=== PATIENT | female | born 1940 | race Caucasian/White ===

== ENCOUNTER 2016-05-10 07:55 | Inpatient (IN) | payer MEDICARE ==
--- NOTE | ~2016-05-10 | HP ---
Unit #: [id number] #: [id number] Patient: CLAUDETTE SILVESTRE [id number] [address] [place], [place] [address] [id number] I MR#: [id number] NAME: CLAUDETTE SILVESTRE. ROOM: 469 Age: 75 Sex: F Admission Date: 05/10/2016 : 1940 Attending Physician: Asia Segundo M.D. Primary Care Physician: Melody Ham M.D. HISTORY AND PHYSICAL CHIEF COMPLAINT Shortness of breath. HISTORY OF PRESENT ILLNESS The patient is a 75-year-old female who recently was admitted and discharged from [facility] for a similar presentation of shortness of breath. She has had about two to three recent admissions on account of the same symptoms. She currently follows up with Dr. Villa Pulmonary. She presented with shortness of breath, having some difficulty breathing, and unable to catch her breath. She was seen and evaluated in the emergency room, and workup so far did not really reveal a pneumonia. Chest x-ray, however, showed some pulmonary pleural effusions, and she was admitted for COPD exacerbation. At this time, she states she is comfortable. She is still short of breath but is on oxygen, and she feels a little bit better. PAST MEDICAL HISTORY 1. Atrial fibrillation. 2. Hypertension. 3. Chronic obstructive pulmonary disease. 4. Hyperlipidemia. 5. Chronic respiratory failure with oxygen at night. HOME MEDICATIONS 1. Cartia XT 180 mg p.o. twice daily. 2. Xarelto 20 mg p.o. every evening for atrial fibrillation. 3. Lipitor 20 mg p.o. daily. 4. Advair 250/50 at 2 puffs inhalation twice daily. 5. Tudorza Pressair 400 mcg inhalation twice daily. 6. Calcium with vitamin D 2 tablets p.o. daily. 7. DuoNebs. 8. Lasix 40 mg p.o. every evening. 9. Potassium 10 mEq p.o. daily. 10. Tramadol 50 mg every 12 hours. 11. Flonase nasal 1 squirt intranasal twice daily. ALLERGIES LATEX. FAMILY HISTORY Noncontributory to the presenting complaint. SOCIAL HISTORY From documentation in the chart, patient smokes about a half a pack of Unit #: [id number] #: [id number] Patient: CLAUDETTE SILVESTRE cigarettes a day. Denies any alcohol use or illicit drug use. REVIEW OF SYSTEMS She feels a little better. She does have a cough. Denies any chest pain. No melena, hematochezia, hemoptysis, or hematemesis. A complete 10-point review of systems has been done and pertinent positives are noted above. PHYSICAL EXAMINATION GENERAL: She was acute on chronically ill looking. VITAL SIGNS: Blood pressure was 160/83, pulse 117, respiratory rate 22, and temperature 98.3. HEENT: Pupils were equal and reactive to light and accommodation. NECK: Supple without thyromegaly. CHEST: Reduced breath sounds and some wheezing. CARDIOVASCULAR: First and second heart sounds. ABDOMEN: Full. Moved with respiration. Soft. No palpable organomegaly. SKIN: Warm and dry with no rashes with bruising noted. CENTRAL NERVOUS SYSTEM: Alert and oriented x3. Moves all limbs spontaneously. Cranial nerves II-XII grossly intact at this time. EXTREMITIES: Mild bilateral lower extremity edema. DIAGNOSTIC STUDIES LABORATORY: Chemistries with glucose of 128, BUN and creatinine 13 and 0.8, sodium and potassium 136 and 4, and chloride and bicarbonate 95 and 30, respectively. CBC with WBC of 4.8, hemoglobin and hematocrit 8.9 and 25.6, and platelet count of 274,000. IMAGING: Chest x-ray showed cardiomegaly with possible mild vascular congestion and small bilateral pleural effusions. Findings were said to be stable or recurrent since March 16, 2016. COPD. ASSESSMENT AND PLAN 1. Acute respiratory failure probably multifactorial at this time. I believe chronic obstructive pulmonary disease exacerbation is probably in play here. However, there might be some (1) congestive heart failure. BNP was 206 which is up from March 13, 2016, when it was 135. She also has some anemia which may also be somewhat of a factor in this. I will go ahead and consult Pulmonary at this time, and she may need to see Cardiology as well. In light of patient's stability, I would place patient on telemetry monitoring and get cardiac markers. 2. Deep venous thrombosis prophylaxis. She is currently on Xarelto for atrial fibrillation. 3. Gastroesophageal reflux disease/gastrointestinal prophylaxis. Will put her on Protonix. 1. Dictated by Bryce Whitaker TD: 05/10/2016 21:06 JOB #: [id number] Unit #: [id number] #: [id number] Patient: CLAUDETTE SILVESTRE HISTORY AND PHYSICAL X Asia Segundo MD X HISTORY AND PHYSICAL
--- NOTE | ~2016-05-10 | DS ---
Unit #: [id number] #: [id number] Patient: CLAUDETTE SILVESTRE [id number] [address] [address] [id number] I MR#: [id number] NAME: CLAUDETTE SILVESTRE. ROOM: 469 Age: 75 Sex: F Admission Date: 05/10/2016 : 1940 Discharge Date: 05/15/2016 Attending Physician: Laurent Perez M.D. Primary Care Physician: Melody Ham M.D. DISCHARGE SUMMARY REASON FOR HOSPITAL ADMISSION Acute respiratory failure. HISTORY OF PRESENT ILLNESS/HOSPITAL COURSE The patient is a very pleasant 75-year-old female who was originally admitted secondary to chronic obstructive pulmonary disease exacerbation as well as acute respiratory failure and likely acute diastolic dysfunction. In regard to her respiratory failure, Dr. Villa of pulmonary services was subsequently consulted. He continued to follow the patient throughout hospital course. Initially she was placed on IV Solu-Medrol as well as IV antibiotics an aerosol treatments. She has been since gradually transitioned to p.o. doxycycline as well as p.o. prednisone. In regard to her prior history of diastolic heart failure, the patient did undergo two-dimensional echocardiogram on 03/17/2016 and was actually followed by [facility] and, therefore, we consulted their services for the same. She does have a prior history of diastolic heart rate failure with a ISABEL score of approximately 4. While she was here she was maintained on appropriate IV diuresis and over the past 24-48 hours she has diuresed appropriately. Today she is feeling much better. Physical therapy and occupational therapy services have both evaluated the patient and recommended that she be transitioned to a rehab facility for ongoing care. In regard to her underlying history of atrial fibrillation, she was maintained on chronic anticoagulation including Xarelto while she was here. It should be noted that she does have severe pulmonary hypertension noted on two-dimensional echocardiogram. She also has a baseline history of chronic anemia with a hemoglobin of approximately 8.5. Unit #: [id number] #: [id number] Patient: CLAUDETTE SILVESTRE DIAGNOSTIC DATA LABORATORY: On discharge baseline creatinine level close to 1.0, hemoglobin 9.2. FINAL DISCHARGE DIAGNOSES 1. Dyspnea, multifactorial in origin. Likely secondary to acute on chronic respiratory failure, chronic obstructive pulmonary disease exacerbation, acute on chronic diastolic heart failure, anemia compounding. 2. History of endstage chronic obstructive pulmonary disease on nocturnal O2, likely requiring 24-hour oxygen moving forward. 3. Acute on chronic diastolic heart failure. 4. Volume overload. 5. Likely obstructive sleep apnea. 6. Sever pulmonary hypertension. 7. Anemia, baseline approximately 8.5 to 9.0. 8. Severe deconditioning. 9. Immobility syndrome. 10. Chronic atrial fibrillation with ISABEL score 4. 11. Chronic anticoagulation. DISCHARGE MEDICATIONS 1. Combivent aerosol solution q.2 h. p.r.n., q.6 h. scheduled. 2. Pulmicort nebulized b.i.d. 3. Prednisone 40 mg p.o. daily times 5 days. 4. Perforomist nebulized solution b.i.d. 5. Prednisone 40 mg p.o. daily. 6. Flonase 1-2 squirts each nostril daily. 7. Xarelto 20 mg p.o. daily. 8. Xanax 0.5 mg p.o. q.6 h. p.r.n. 9. Cardizem CD 180 mg p.o. b.i.d. 10. Lipitor 20 mg p.o. at nighttime. 11. Ultram 50 mg p.o. b.i.d. p.r.n. 12. Aldactone 12.5 mg p.o. daily. 13. Protonix 40 mg p.o. b.i.d. 14. Os-Fernie 1000 mg p.o. daily. 15. Doxycycline 100 mg p.o. b.i.d. times 5 days. DISCHARGE CONDITION Stable. DISPOSITION Rehab for ongoing care. Dictated by... Bryce Hill/david TD: 05/15/2016 12:10 JOB #: [id number] Unit #: [id number] #: [id number] Patient: CLAUDETTE SILVESTRE DISCHARGE SUMMARY X Laurent Perez MD DISCHARGE SUMMARY
--- NOTE | ~2016-05-10 | CO ---
Unit #: [id number] #: [id number] Patient: CLAUDETTE SILVESTRE [id number] [facility]. [place], [place] [address] [id number] I MR#: [id number] NAME: CLAUDETTE SILVESTRE. ROOM: 469 Age: 75 Sex: F Admission Date: 05/10/2016 : 1940 Attending Physician: Tennille Kendrick M.D. Primary Care Physician: Melody Ham M.D. CONSULTATION REPORT REFERRING PHYSICIAN Dr. Segundo. REASON FOR CONSULTATION AFib management and shortness of breath. HISTORY OF PRESENT ILLNESS This is a 75-year-old female, who follows chronically with Dr. Cruz for her AFib. She has had 2 to 3 recent admissions for shortness of breath and follows with Dr. Villa as an outpatient. On 05/09/2016, she became more short of breath and her symptoms are not relieved with breathing treatment. She denied cough and wheezing, but just felt like she could not breathe. By Wednesday on 05/10/2016, her symptoms were worse. She has dyspnea especially with exertion and she cannot tolerate very little activity, which is a change from just in the last month to month and a half. Apparently, she was walking upstairs without a problem at [place] time and now can barely walk about 5 to 10 feet. She does report PND, but states as long as she has 2 pillows, she lays flat at night. She appears to be conversationally dyspneic. She also complains of swelling to her feet, legs, and ankles, which has gotten better, but had gotten worse about a week ago. She has chronic palpitations, however, she reports in the last week, she has not felt any palpitations. She denies any dizziness. She denies any syncope. She denies any weight loss. She is very compliant with her medications. She informs me and her daily weight. This is for her CHF management. She has had a 3 pound weight gain since 04/29/2016 and has all her daily weights written in a notebook. Her swelling to her bilateral lower extremities also is accompanied with increased pain, which is a new symptom for her. Apparently, she has an appointment this with Dr. Cruz and was supposed to have an appointment today with heart failure clinic. Previous cardiac testing includes an EP study with atrial flutter ablation on 10/03/2012. A left heart cath in 07/2012 showed nonobstructive coronary artery disease. She had a 20% LAD stenosis, 20% left circumflex stenosis, 20% mid RCA stenosis. She had a AVTAR also in 07/2012, which was unremarkable for any clots. 2D echo done on 03/17/2016 showed normal LV function with mild MR, [id number] TR, and moderate pulmonary hypertension with an RVSP of 50 with mild LVH. Lexiscan Cardiolite was done on 07/04/2012, which was positive for ischemia of the septal apical and inferolateral arnold. Her EF at that time was 50%. She was subsequently heart catheterized as noted above. PAST MEDICAL HISTORY Include cardiac ablation; chronic AFib, on Xarelto with intermittent Unit #: [id number] #: [id number] Patient: CLAUDETTE SILVESTRE atrial flutter; hypertension; hyperlipidemia; COPD requiring supplemental oxygen at home; previous tobacco abuse; pulmonary hypertension; squamous cell carcinoma; essential tremor; cataract surgery; and nonobstructive coronary artery disease. HOME MEDICATIONS Include diltiazem 180 b.i.d., Xarelto 20 mg daily, Lipitor 20 mg daily, Advair inhaler, Tudorza Pressair, calcium and vitamin D tablets, DuoNeb, Lasix 40 mg daily, potassium 20 mEq daily, tramadol 50 mg b.i.d. as needed for pain, Flonase, Augmentin 875 mg b.i.d. ALLERGIES To latex. SOCIAL HISTORY Apparently, she told me she quit smoking on 03/13/2016 and she has been using a patch. Prior to quitting, she smoked about a pack a day for 50 years. She lives with her daughter. She denies any alcohol or illicit drugs. FAMILY HISTORY Positive for cancer. Apparently, her father had hypertension, but unremarkable for any further heart disease that she is aware of. REVIEW OF SYSTEMS As noted above in the HPI. PHYSICAL EXAMINATION VITAL SIGNS: Blood pressure 139/57, heart rate of 104, respirations 18, temperature 97.2, weight 69.6 kg. GENERAL: She appears well developed, well nourished, and is seen in room 469, and appears in mild respiratory distress with O2 via nasal cannula. SKIN: Very dry with scaly patches and no rashes, ulcers, wounds noted. HEENT: Head is normocephalic, atraumatic. Pupils are equal, round, and reactive to light and accommodation with extraocular movements are intact. Oral mucosal membranes are dry. NECK: Supple with no bruit or JVD noted. However, she is mildly obese. SPINE: Shows no tenderness and no scoliosis. CHEST: She has reduced breath sounds mostly in the bases and increased respiratory effort. CARDIOVASCULAR: She is in an irregularly irregular rhythm with an S1 and S2 noted and a soft 1/6 systolic ejection murmur heard at the apex. ABDOMEN: Soft, round, nontender with positive bowel sounds. EXTREMITIES: Show 1+ edema, very mild at best with positive pulses. NEUROLOGIC: She is alert and oriented x3 and pleasant. She is a pretty good historian as well. DIAGNOSTIC STUDIES LABORATORY RESULTS: Troponin level, which has been less than 0.03 x3. Sodium 136, potassium 4.0, chloride 96, BUN is 15, creatinine 0.6, glucose 203. BNP 206. Blood cultures are pending. WBC 4.8, hemoglobin 8.7, hematocrit 26.1, and platelet count 303. CARDIOVASCULAR STUDIES: EKG, AFib with rate in the 90s. IMAGING STUDIES: Chest x-ray on 05/10/2016 show cardiomegaly with mild vascular congestion with small bilateral pleural effusion stable since 03/16/2016 and positive for COPD. Unit #: [id number] #: [id number] Patient: CLAUDETTE SILVESTRE ASSESSMENT AND PLAN 1. She has permanent atrial fibrillation, rate controlled, managed on Xarelto. CHADS-VASc score was found to be 4. 2. Acute exacerbation of chronic obstructive pulmonary disease. 3. Elevated glucose secondary to administration of steroids. 4. Acute respiratory failure. 5. Chronic anticoagulation with Xarelto. Cardiology has been asked to see her for shortness of breath and chronic atrial fibrillation. She is managed on Cardizem and Xarelto, which will be continued. She is also on 40 of p.o. Lasix daily. I will give her 40 mg IV x1 dose and resumed her p.o. Lasix in the morning. Diltiazem and Xarelto to continue. We will check an EKG in the a.m. She is stable from a cardiac standpoint. Thank you for this consult. We will continue to follow her through hospitalization. Dictated by... Ying Rendon APRN for Bryce Miller TD: 05/11/2016 22:29 JOB #: [id number] CONSULTATION REPORT X X CONSULTATION REPORT
--- NOTE | ~2016-05-10 | CO ---
Unit #: [id number] #: [id number] Patient: CLAUDETTE MEYER [id number] [facility]. [place], [place] [address] [id number] I MR#: [id number] NAME: CLAUDETTE MEYER ROOM: 469 Age: 75 Sex: F Admission Date: 05/10/2016 : 1940 Attending Physician: Tennille Kendrick M.D. Primary Care Physician: Melody Ham M.D. CONSULTATION REPORT HISTORY OF PRESENT ILLNESS The patient is a 75-year-old female, who has a history of COPD and chronic atrial fibrillation and some degree of heart failure, who is the grandmother of a respiratory therapist here at [facility]. She was at this institution early 03/2016, where she had streptococcal pneumonia and COPD exacerbation. She had very dense consolidation of her left lower lobe and another nodular consolidation in the right lower lobe. She apparently then was home approximately a week or two and went to [place] for "congestive heart failure." Those records are unavailable. She then had a 1- to -2 day history of increased cough, mucopurulent sputum, wheezing. She presented to the emergency room, where she was admitted. She denies hemoptysis, chest pain, pleurisy. She has had generalized leg pain, but that is relatively chronic. PAST MEDICAL HISTORY Remarkable for COPD; chronic respiratory failure, now requiring oxygen 24 hours a day; recent pneumococcal pneumonia; atrial fibrillation; hypertension; hyperlipidemia; congestive heart failure, details unclear; pulmonary hypertension with an estimated RVSP of 50, I do not see a formal echo report recently. MEDICATIONS At home, according to her med rec sheet, she is on Advair b.i.d., Tudorza b.i.d. She has a nebulizer. She wears her oxygen 24 hours a day. She is also on Cartia, Xarelto, Lipitor, calcium, nebulized bronchodilators, Lasix, potassium, tramadol, Flonase, and was on Augmentin; although, I am not sure if she was still taking that or not. ALLERGIES Lasix. SOCIAL HISTORY According to the ER face sheet, she still smokes. FAMILY HISTORY No familial lung disease. REVIEW OF SYSTEMS No definite fever or weight loss. She does snore and most of these hospitalizations occur in the mobile home set up person hours. No definite chest pain, palpitations, abdominal pain, melena, hematochezia, hematuria, dysuria, diffuse leg pain, and occasionally some leg swelling. She has this rash for lack of a better term all over her legs, it has been there for what her granddaughter says is years. Further review of systems Unit #: [id number] #: [id number] Patient: CLAUDETTE MEYER negative. PHYSICAL EXAMINATION VITAL SIGNS: Reveals a patient, who is afebrile. Pulse is 100, respiratory rate is 22, blood pressure is 147/80. 5 feet 6 inches, 153 pounds. HEENT: Pupils are equal, round, and reactive to light. Sclerae anicteric. Head atraumatic. NECK: Supple. No supraclavicular or cervical adenopathy appreciated. She has dentures on the tops. She has a few natural teeth on bottom. Mucous membranes are moist. CHEST: Expiratory wheeze. No consolidation. No stridor. CARDIAC: Reveals a mild tachycardia, mildly irregular. Possible soft murmur. ABDOMEN: Soft and nontender. No hepatomegaly or rebound. EXTREMITIES: Reveal no clubbing, cyanosis. No definite edema now. SKIN: Reveals the small little punctate areas that are scaly all over her legs bilaterally. NEUROLOGICAL: Grossly intact. No focal motor or sensory deficits. DIAGNOSTIC STUDIES IMAGING STUDIES: Chest x-ray shows an improvement to my review, her left lower lobe, she has bilateral small pleural effusions. LABORATORY RESULTS: BUN is 13, creatinine 0.8. BNP is 206. Cardiac enzymes negative. White blood cell count 4.8, hemoglobin 8.9, platelet count 274. Blood cultures performed and are pending. CARDIOVASCULAR STUDIES: EKG; atrial fibrillation. IMPRESSION 1. Shortness of breath. It is likely multifactorial including acute exacerbation of chronic obstructive pulmonary disease. 2. Bilateral small pleural effusions, may have some congestive heart failure, details unclear. 3. Recent admission here at [facility] for streptococcal pneumonia with an abnormal CAT scan. 4. Recent admission to [place] for "congestive heart failure.". 5. Chronic respiratory failure, now requiring oxygen 24 hours a day. 6. Abnormal CAT scan during her pneumonia, needs to be followed to clearance. 7. Suspect obstructive sleep apnea with snoring. 8. Tobacco use. 9. Anemia. 10. Atrial fibrillation, on Xarelto. 11. Pulmonary hypertension. 12. Rash. 13. Medical problems listed above. PLAN Treatment of her chronic obstructive pulmonary disease. Antibiotics for bronchitis. Echocardiogram for LV function and valvular integrity. She has had two hospitalizations and carries this diagnosis of congestive heart failure. I could not find a recent echocardiogram either in [facility] or [facility]. She certainly will need a CT scan of the chest at some point in time, I am not sure that it would alter her current therapy. My suspicion for thromboembolic disease is essentially zero, given her history and the fact that she is on Xarelto. Certainly, no smoking is of Unit #: [id number] #: [id number] Patient: CLAUDETTE MEYER great benefit. Consider Dermatology consultation either inpatient or outpatient followup. Thank you very much for allowing me to participate in the care of Ms. Meyer. Dictated by... Ry Villa M.D. SAURAV/cathleen TD: 05/11/2016 15:28 JOB #: [id number] CONSULTATION REPORT X Ry Villa MD X CONSULTATION REPORT
--- NOTE | ~2016-05-10 | EKG ---
PATIENT: CLAUDETTE SILVESTRE UNIT #: [id number] Ventricular Rate: 85 BPM Atrial Rate: 300 BPM QRS Duration: 76 ms Q-T Interval: 372 ms QTC Calculation(Bezet): 442 ms Calculated R [place]: -38 degrees Calculated T [place]: 39 degrees Diagnosis Line: Atrial fibrillation Diagnosis Line: Left axis deviation Diagnosis Line: Low voltage QRS Diagnosis Line: Cannot rule out Anteroseptal infarct (cited on or Diagnosis Line: before 09-MAR-2013) Diagnosis Line: Abnormal ECG Diagnosis Line: When compared with ECG of 10-MAY-2016 07:01, Diagnosis Line: No significant change was found Diagnosis Line: Confirmed by SANDY ROE MD ([id number]) on Diagnosis Line: 05/12/2016 12:08:02 PM INTERPRETING MD: CECILIA
--- NOTE | ~2016-05-10 | CR72 ---
[facility] A Service of [facility] RADIOLOGY TEXT RESULTS PATIENT: CLAUDETTE SILVESTRE LOCATION: [place] [address] : [birth year] UNIT #: [id number] AGE: [address]: Asia Segundo MD SEX: F ORDER DR: [id number] [facility] [address] [facility]. [place], [place] [address] [id number] I MR#: [id number] Acc #: [id number] NAME: CLAUDETTE SILVESTRE. : 1940 SEX: F STUDY DATE/TIME: 05/10/2016 7:13 UNIT: [facility] ROOM: [facility] STUDY DESCRIPTION: CR Chest Single View Portable Attending Physician: Asia Segundo M.D. Ordering Physician: Igor Gipson M.D. Primary Care Physician: Melody Ham M.D. MEDICAL IMAGING REPORT This report is preliminary unless electronic signature is present EXAM AP portable chest 05/10/2016. HISTORY 75-year-old female in the ED complaining of 1-day history of shortness of air and cough. TECHNIQUE AP portable chest x-ray. FINDINGS Small bilateral pleural effusions with bibasilar infiltrate or atelectasis, persistent or recurrent since 03/16/2016. Mild cardiomegaly with radiographic findings suggesting potential mild vascular congestion, also unchanged. Pulmonary emphysema with pulmonary hyperinflation, best demonstrated on previous chest CT 03/13/2016. IMPRESSION 1. Cardiomegaly with possible mild vascular congestion. Small bilateral pleural effusions. These findings are stable or recurrent since 03/16/2016. 2. COPD. Dictated by... David Sanchez M.D. THIS IS AN ELECTRONICALLY VERIFIED REPORT David Sanchez M.D. at 05/10/2016 3:06 PM RGW/jackeline [facility] A Service of [facility] RADIOLOGY TEXT RESULTS PATIENT: CLAUDETTE SILVESTRE LOCATION: [facility] [id number] : [birth year] UNIT #: [id number] AGE: [address]: Asia Segundo MD SEX: F ORDER DR: TD: 05/10/2016 13:20 JOB #: [id number] MEDICAL IMAGING REPORT COPY
--- NOTE | ~2016-05-10 | EKG ---
PATIENT: CLAUDETTE SILVESTRE UNIT #: [id number] Ventricular Rate: 96 BPM Atrial Rate: 101 BPM QRS Duration: 70 ms Q-T Interval: 350 ms QTC Calculation(Bezet): 442 ms Calculated R [place]: -51 degrees Calculated T [place]: 64 degrees Diagnosis Line: Atrial fibrillation Diagnosis Line: Left axis deviation Diagnosis Line: Low voltage QRS Diagnosis Line: Cannot rule out Anteroseptal infarct (cited on or Diagnosis Line: before 09-MAR-2013) Diagnosis Line: Abnormal ECG Diagnosis Line: When compared with ECG of 13-MAR-2016 12:09, Diagnosis Line: Questionable change in initial forces of Septal Diagnosis Line: leads Diagnosis Line: Confirmed by OLINDA CORTEZ MD ([id number]) on 05/11/2016 Diagnosis Line: 6:01:09 PM INTERPRETING MD: DIEGO HANDLEY
--- NOTE | ~2016-05-10 | CR63 ---
[facility] A Service of [facility] RADIOLOGY TEXT RESULTS PATIENT: CLAUDETTE SILVESTRE LOCATION: [place] [address] : 38 UNIT #: [id number] AGE: [address]: Laurent Perez MD SEX: F ORDER DR: [id number] [facility] [address] [place], [place] [address] [id number] I MR#: [id number] Acc #: [id number] NAME: CLAUDETTE SILVESTRE. : 1940 SEX: F STUDY DATE/TIME: 05/12/2016 10:45 UNIT: [facility] ROOM: [facility] STUDY DESCRIPTION: CR Chest 2 View Attending Physician: Laurent Perez M.D. Ordering Physician: Laurent Perez M.D. Primary Care Physician: Melody Ham M.D. MEDICAL IMAGING REPORT This report is preliminary unless electronic signature is present EXAM Chest, PA and lateral, 05/12/2016 COMPARISON EXAMINATION 05/10 HISTORY Shortness of breath, weakness, COPD, atrial fibrillation beginning 05/10/2016. FINDINGS PA and lateral views are obtained and compared to the study of 05/10. Heart size is stable. Lung continue to show evidence of pulmonary edema with bilateral pleural effusions. There is underlying chronic emphysematous lung disease. CONCLUSION COPD. Findings consistent with congestive heart failure, pulmonary edema, and bilateral effusions. Dictated by... Boone Garza M.D. THIS IS AN ELECTRONICALLY VERIFIED REPORT Boone Garza M.D. at 05/13/2016 5:03 PM ROBIN/kristie TD: 05/12/2016 16:02 JOB #: [id number] [facility] A Service [facility] RADIOLOGY TEXT RESULTS PATIENT: CLAUDETTE SILVESTRE LOCATION: [place] [address] : 38 UNIT #: [id number] AGE: [address]: Laurent Perez MD SEX: F ORDER DR: MEDICAL IMAGING REPORT COPY
[2016-05-10 07:41] LABS: BASOPHIL% 0.9 % (0-2.5); EOSINOPHIL# 0.1 X10e3 (0-0.7); EOSINOPHIL% 1.6 % (0.0-7.0); HEMATOCRIT 25.6 % (35.0-45.0); HEMOGLOBIN 8.9 gm/dL (12.0-16.0); LYMPHOCYTE# 0.7 X10e3 (1.0-3.5); LYMPHOCYTE% 15.1 % (17.0-45.0); MEAN CELL VOLUME 84.2 FL (83-96); MEAN CORPUSCULAR HEMOGLOBIN 29.2 PG (28-34); MEAN CORPUSCULAR HGB CONC 34.7 g/dL (30-36); MEAN PLATELET VOLUME 6.6 FL (6.5-11.5); MONOCYTE# 0.6 X10e3 (0-1.0); MONOCYTE% 11.9 % (3.0-12.0); NEUTROPHIL# 3.4 X10e3 (1.5-7.1); NEUTROPHIL% 70.5 % (40-75); PLATELET COUNT 274 X10e3 (140-420); RED BLOOD COUNT 3.04 X10e (3.90-5.30); RED CELL DISTRIBUTION WIDTH 17.3 % (11.0-15.5); WHITE BLOOD COUNT 4.8 X10e3 (4.0-10.5)
[2016-05-10 07:46] LABS: DIFF IND NO
[2016-05-10 07:54] LABS: POC - CKMB 1.9 ng/mL (0.0-7.9); POC - TROPONIN <0.05 ng/mL (<=0.05)
[~2016-05-10 07:55] MED LIST: ADVAIR 250-501 EAC1; ADVAIR 500-501 EACH PO; ALBUTEROL MININEB NEB; ALBUTEROL17 GM; CALCIUM1 TAB.CHEW; CARTIA XT180 M1; CARTIA XT180 MG PO; IPRAT-ALBUT 0.5-3 ML INH; LIPITOR20 MG; LIPITOR20 MG PO; NICOTINE TRANSD14 MG EXT; NICOTINE TRANSDE7 MG EXT; OXYGEN; PREDNISONE PO; TUDORZA PRESS400 MCG PO; VITAMIN D1000 UNIT PO; XARELTO10 MG; XARELTO20 MG PO; [UNRECOGNIZED DRUG - OTHER]
[2016-05-10 08:04] LABS: ALBUMIN SERUM 3.6 g/dL (3.5-5.0); ALKALINE PHOSPHATASE 68 U/L (32-92); ALT (SGPT) 16 U/L (10-40); AST (SGOT) 18 U/L (10-42); BILIRUBIN, DIRECT 0.2 mg/dL (0.0-0.2); BILIRUBIN,TOTAL 1.2 mg/dL (0.2-2.0); BLOOD UREA NITROGEN 13 mg/dL (9-23); BUN/CREATININE RATIO 16.25; CALCIUM SERUM 9.3 mg/dL (8.4-10.2); CARBON DIOXIDE 30 mmol/L (22-31); CHLORIDE 95 mmol/L (100-111); CREATININE SERUM 0.8 mg/dL (0.6-1.4); GLOM FILT RATE Estimated ABOVE60 mL/min (>60); GLUCOSE FASTING 128 mg/dL (70-110); PROTEIN TOTAL SERUM 6.3 g/dL (6.0-8.3); SODIUM 136 mmol/L (135-145)
[2016-05-10] MEDS ORDERED: LASIX PO (09:48)
[2016-05-10] MEDS ORDERED: TRAMADOL HCL50 M2 PO (09:50)
[2016-05-10] MEDS ORDERED: K-LOR HOSPITAL20 ME1 PO (09:50)
[2016-05-10] MEDS ORDERED: FLONASE 0.05% N16 G1 (15:05)
[2016-05-10] MEDS ORDERED: AMOX TR-K CLV 81 TA1 PO (15:06)
[2016-05-11 03:11] LABS: BASOPHIL% 0.2 % (0-2.5); HEMATOCRIT 26.1 % (35.0-45.0); HEMOGLOBIN 8.7 gm/dL (12.0-16.0); LYMPHOCYTE# 0.4 X10e3 (1.0-3.5); LYMPHOCYTE% 8.1 % (17.0-45.0); MEAN CELL VOLUME 84.7 FL (83-96); MEAN CORPUSCULAR HEMOGLOBIN 28.1 PG (28-34); MEAN CORPUSCULAR HGB CONC 33.2 g/dL (30-36); MEAN PLATELET VOLUME 6.9 FL (6.5-11.5); MONOCYTE# 0.1 X10e3 (0-1.0); MONOCYTE% 2.5 % (3.0-12.0); NEUTROPHIL# 4.3 X10e3 (1.5-7.1); NEUTROPHIL% 89.2 % (40-75); PLATELET COUNT 303 X10e3 (140-420); RED BLOOD COUNT 3.08 X10e (3.90-5.30); RED CELL DISTRIBUTION WIDTH 17.3 % (11.0-15.5); WHITE BLOOD COUNT 4.8 X10e3 (4.0-10.5)
[2016-05-11 03:15] LABS: DIFF IND NO
[2016-05-11 03:38] LABS: BLOOD UREA NITROGEN 15 mg/dL (9-23); CALCIUM SERUM 9.3 mg/dL (8.4-10.2); CARBON DIOXIDE 31 mmol/L (22-31); CHLORIDE 96 mmol/L (100-111); CREATININE SERUM 0.6 mg/dL (0.6-1.4); GLOM FILT RATE Estimated ABOVE60 mL/min (>60); GLUCOSE FASTING 203 mg/dL (70-110); MAGNESIUM 1.8 mg/dL (1.6-3.0); PHOSPHOROUS 3.8 mg/dL (2.5-4.6); SODIUM 136 mmol/L (135-145)
[2016-05-11 03:54] LABS: CK TOTAL 30 IU/L (26-140)
[2016-05-11 11:17] LABS: CK TOTAL 19 IU/L (26-140)
[2016-05-11 17:59] LABS: CK TOTAL 24 IU/L (26-140)
[2016-05-12 02:31] LABS: HEMATOCRIT 25.9 % (35.0-45.0); HEMOGLOBIN 8.5 gm/dL (12.0-16.0); MEAN CELL VOLUME 85.2 FL (83-96); MEAN CORPUSCULAR HEMOGLOBIN 27.8 PG (28-34); MEAN CORPUSCULAR HGB CONC 32.6 g/dL (30-36); MEAN PLATELET VOLUME 6.7 FL (6.5-11.5); RED BLOOD COUNT 3.04 X10e (3.90-5.30)
[2016-05-12 02:38] LABS: WHITE BLOOD COUNT 11.4 X10e3 (4.0-10.5)
[2016-05-12 05:11] LABS: BLOOD UREA NITROGEN 26 mg/dL (9-23); BUN/CREATININE RATIO 28.88; CALCIUM SERUM 9.6 mg/dL (8.4-10.2); CARBON DIOXIDE 33 mmol/L (22-31); CHLORIDE 92 mmol/L (100-111); CREATININE SERUM 0.9 mg/dL (0.6-1.4); GLOM FILT RATE Estimated ABOVE60 mL/min (>60); GLUCOSE FASTING 176 mg/dL (70-110); MAGNESIUM 1.9 mg/dL (1.6-3.0); SODIUM 136 mmol/L (135-145)
[2016-05-13 03:55] LABS: HEMATOCRIT 25.2 % (35.0-45.0); HEMOGLOBIN 8.2 gm/dL (12.0-16.0); LYMPHOCYTE# 0.6 X10e3 (1.0-3.5); LYMPHOCYTE% 5.1 % (17.0-45.0); MEAN CELL VOLUME 84.9 FL (83-96); MEAN CORPUSCULAR HEMOGLOBIN 27.7 PG (28-34); MEAN CORPUSCULAR HGB CONC 32.6 g/dL (30-36); MEAN PLATELET VOLUME 6.6 FL (6.5-11.5); MONOCYTE# 0.6 X10e3 (0-1.0); MONOCYTE% 5.9 % (3.0-12.0); NEUTROPHIL# 9.5 X10e3 (1.5-7.1); PLATELET COUNT 357 X10e3 (140-420); RED BLOOD COUNT 2.97 X10e (3.90-5.30); RED CELL DISTRIBUTION WIDTH 16.8 % (11.0-15.5); WHITE BLOOD COUNT 10.7 X10e3 (4.0-10.5)
[2016-05-13 04:00] LABS: DIFF IND NO
[2016-05-13 04:23] LABS: CALCIUM SERUM 9.6 mg/dL (8.4-10.2); GLOM FILT RATE Estimated 57.1 mL/min (>60); MAGNESIUM 2.2 mg/dL (1.6-3.0); POTASSIUM 4.8 mmol/L (3.5-5.1)
[2016-05-14 04:34] LABS: BASOPHIL% 0.1 % (0-2.5); DIFF IND NO; EOSINOPHIL% 0.1 % (0.0-7.0); HEMATOCRIT 26.6 % (35.0-45.0); HEMOGLOBIN 8.8 gm/dL (12.0-16.0); LYMPHOCYTE# 0.6 X10e3 (1.0-3.5); MEAN CELL VOLUME 83.9 FL (83-96); MEAN CORPUSCULAR HEMOGLOBIN 27.6 PG (28-34); MEAN CORPUSCULAR HGB CONC 32.9 g/dL (30-36); MEAN PLATELET VOLUME 6.5 FL (6.5-11.5); MONOCYTE# 0.6 X10e3 (0-1.0); MONOCYTE% 5.2 % (3.0-12.0); NEUTROPHIL# 10.4 X10e3 (1.5-7.1); NEUTROPHIL% 89.6 % (40-75); PLATELET COUNT 362 X10e3 (140-420); RED BLOOD COUNT 3.17 X10e (3.90-5.30); RED CELL DISTRIBUTION WIDTH 16.6 % (11.0-15.5); WHITE BLOOD COUNT 11.6 X10e3 (4.0-10.5)
[2016-05-14 04:56] LABS: BLOOD UREA NITROGEN 30 mg/dL (9-23); CALCIUM SERUM 9.2 mg/dL (8.4-10.2); CARBON DIOXIDE 35 mmol/L (22-31); CHLORIDE 91 mmol/L (100-111); CREATININE SERUM 0.8 mg/dL (0.6-1.4); GLOM FILT RATE Estimated ABOVE60 mL/min (>60); GLUCOSE FASTING 175 mg/dL (70-110); POTASSIUM 4.2 mmol/L (3.5-5.1); SODIUM 135 mmol/L (135-145)
[2016-05-14 18:09] LABS: CALCIUM SERUM 8.6 mg/dL (8.4-10.2); GLOM FILT RATE Estimated 57.1 mL/min (>60); POTASSIUM 4.2 mmol/L (3.5-5.1)
[2016-05-15 03:23] LABS: HEMATOCRIT 27.4 % (35.0-45.0); HEMOGLOBIN 9.2 gm/dL (12.0-16.0); MEAN CELL VOLUME 83.6 FL (83-96); MEAN CORPUSCULAR HEMOGLOBIN 28.1 PG (28-34); MEAN CORPUSCULAR HGB CONC 33.6 g/dL (30-36); MEAN PLATELET VOLUME 6.6 FL (6.5-11.5); RED BLOOD COUNT 3.28 X10e (3.90-5.30); WHITE BLOOD COUNT 14.1 X10e3 (4.0-10.5)
[2016-05-15 03:48] LABS: BLOOD UREA NITROGEN 31 mg/dL (9-23); BUN/CREATININE RATIO 34.44; CALCIUM SERUM 8.6 mg/dL (8.4-10.2); CARBON DIOXIDE 37 mmol/L (22-31); CHLORIDE 90 mmol/L (100-111); CREATININE SERUM 0.9 mg/dL (0.6-1.4); GLOM FILT RATE Estimated ABOVE60 mL/min (>60); GLUCOSE FASTING 166 mg/dL (70-110); MAGNESIUM 1.9 mg/dL (1.6-3.0); POTASSIUM 3.6 mmol/L (3.5-5.1); SODIUM 135 mmol/L (135-145)
== END 2016-05-17 16:33 | DRG 291 ==
LOC: CED 07:55 → CEDOF 08:40 → C4C 12:53 → C4B 05-16 06:01
PROVIDERS: Emergency Medicine; Family Medicine; Internal Medicine; Nurse Practitioner
DX: I11.0 Hypertensive heart disease with heart failure (principal); J96.21 Acute and chronic respiratory failure with hypoxia; I27.2 Other secondary pulmonary hypertension; I48.92 Unspecified atrial flutter; J44.1 Chronic obstructive pulmonary disease with (acute) exacerbation; I50.33 Acute on chronic diastolic (congestive) heart failure; E78.5 Hyperlipidemia, unspecified; Z99.81 Dependence on supplemental oxygen; Z91.040 Latex allergy status; Z79.01 Long term (current) use of anticoagulants; K21.9 Gastro-esophageal reflux disease without esophagitis; Z98.49 Cataract extraction status, unspecified eye; Z87.891 Personal history of nicotine dependence; I48.2 Chronic atrial fibrillation; D64.9 Anemia, unspecified; R21 Rash and other nonspecific skin eruption; M62.3 Immobility syndrome (paraplegic); L57.0 Actinic keratosis
CPT/HCPCS: 36415; 71010; 71020; 80048; 80076; 82308; 82550; 82553; 82607; 82947; 83036; 83735; 83880; 84100; 84484; 85025; 85027; 87040; 93005; 94640; 94760; 94761; 96374; 97110; 97116; 97163; 97166; 97530; 97535; 99285; C9113; G8978-GP; G8979-GP; G8987-GO; G8988-GO; J1650; J1940; J1956; J2920; J2930

== ENCOUNTER 2016-07-23 15:49 | Inpatient (IN) | payer MEDICARE ==
--- NOTE | ~2016-07-23 | DS ---
Unit #: [id number] #: [id number] Patient: CLAUDETTE SILVESTRE [id number] [address] [place], [place] [address] [id number] I MR#: [id number] NAME: CLAUDETTE SILVESTRE ROOM: 241 Age: 75 Sex: F Admission Date: 07/23/2016 : 1940 Discharge Date: 08/04/2016 Attending Physician: Curly Stafford M.D. Primary Care Physician: Melody Ham M.D. DISCHARGE SUMMARY DISCHARGE DIAGNOSES 1. Acute on chronic respiratory failure, now back to baseline oxygen. 2. Pneumonia, status post antibiotics. 3. End-stage emphysema. 4. Skin tear secondary to steroid therapy at least in part. 5. Diastolic heart failure. 6. Chronic atrial fibrillation. Please note, Xarelto has been held because of Hemoccult-positive stools and severe anemia. 7. Hypertension. 8. Hyperlipidemia. 9. Pulmonary hypertension with an estimated right ventricular systolic pressure of 50. 10. Contraction alkalosis, status post Diamox. 11. Hypokalemia, status post replacement of her potassium. 12. Tobacco abuse. DISCHARGE MEDICATIONS 1. DuoNeb q.i.d. and p.r.n. 2. Prednisone 30 mg daily to be decreased 10 mg daily every 4 days to a baseline of 10 mg daily. 3. Tylenol 650 mg q.i.d. p.r.n. 4. Flonase 2 sniffs each nostril at night. 5. She is on a variety of creams for her skin tears per wound care nurse. 6. Dulera 200 at 2 puffs twice daily. 7. Cardizem 180 mg twice daily. 8. Milk of Magnesia p.r.n. 9. Lasix 40 mg daily orally. 10. Lipitor 20 mg daily. 11. Iron 324 mg daily. Please note, she received IV iron while in the hospital. 12. Multivitamin daily. 13. Ultram 50 mg t.i.d. p.r.n. 14. Protonix 40 mg twice daily. 15. Vitamin D 1000 units daily. 16. Oxygen 2 liters 24 hours daily. 17. Please note, she does not qualify for AVAPS by blood gas criteria. PCO2 was 44. DISPOSITION [facility] ACTIVITY No specific restrictions except oxygen 24 hours a day. Unit #: [id number] #: [id number] Patient: CLAUDETTE SILVESTRE PROCEDURES PERFORMED Please see chart for full details. She had lower extremity venous Dopplers of her right leg and right arm which were negative for blood clots. She has had chest x-rays with improving infiltrates. Last chest x-ray with possible small pleural effusion. She had a CT angiogram with no evidence of PE. Pulmonary infiltrates were identified. DESCRIPTION OF HOSPITALIZATION Patient was admitted by Dr. Stafford through the emergency room with acute on chronic respiratory failure. She had pulmonary infiltrates consistent with pneumonia and was treated. Sputum with gram-positive cocci in pairs on the . It still has not been reported. Of note, she had a pneumococcus in her sputum in the past. She responded well to treatment for pneumonia and has completed her antibiotics. Of note, screen for MRSA was negative. She was very, very weak and will require rehab. Her COPD responded to treatment, and her prednisone is being slowly decreased. Due to the chronicity of her problem and need for steroids often in the past, I would taper her prednisone to 10 mg daily and no further until fully stable. She did have some edema which is multifactorial including low albumin, bedridden state, etc., and I think her edema will mobilize with increased activity. She is on oral Lasix. She may need additional doses of IV diuretics. She developed a mild contraction alkalosis and received oral Diamox. I would occasionally monitor her renal function and electrolytes, as well as her CBC. She had significant anemia. [facility] was consulted. Her hemoglobin was stable, and the lowest was 7 grams. She received IV iron, and at last check, it was 7.7 grams. LSA felt that the scopes were too risky given her debilitated state and will monitor closely and consider outpatient upper and lower scopes if she gets strong enough. Certainly, if she bleeds, EGD can be performed emergently. She has chronic atrial fibrillation, but given her severe anemia, Hemoccult-positive stools, and likely some degree of GI bleeding, her blood thinners have been held. Again, once her hemoglobin has been deemed to be stable, could consider restarting her blood thinners with close monitoring of her hemoglobin and hematocrits. FOLLOWUP At discharge from rehab, I would follow up with [facility], follow up with her product demonstrator, follow up in our office on [facility], and follow up with Dr. Ham, her family physician. LONG-TERM PROGNOSIS Guarded. She is aware of the severity of her lung disease. Dictated by... Bryce Schumacher/ryan Unit #: [id number] #: [id number] Patient: CLAUDETTE SILVESTRE TD: 08/04/2016 15:57 JOB #: [id number] CC: [facility] DISCHARGE SUMMARY Page 1 of 1 X Ry Villa MD X DISCHARGE SUMMARY
--- NOTE | ~2016-07-23 | A ---
[facility] Nutrition Therapy DATE: 08/03/16 Patient: CLAUDETTE SILVESTRE Physician: MOOPET Address: [address] Room/Bed: [address] [place] [address], Zip: [place] [address] Admit Date: 07/23/16 Date of : 38 Height: 5 6 Weight: 153 69.5 NUTRITIONAL ASSESSMENT: REASON: Assessed due to length of stay Admitting Dx: 75 y/o female admitted with PNA, respiratory failure, anemia PMH: COPD on home O2, PNA, HTN, HLD, CHF, A-fib, long hx of smoking Anthropometrics: Ht: 66", Wt: 144-153 lbs, BMI: 24.7 (normal), UBW per patient: 143-145 lbs Labs: Glucose 114, lytes WNL Meds: Therapeutic formula, Milk of Mg, PPI, Furosemide, Prednisone, Vitamin D, Fe gluconate I/O & Bowel function: Last BM 08/01, WNL Skin Integrity: Discoloration BLE, hematoma LUE Edema: Trace DENISE ankles, weeping RUE, 1+ RLE Assessment: Chart reviewed, events noted. RD assessing due to 10 day length of stay. The patient is on 2.5L nasal cannula, getting breathing treatment at time of RD interview. She is tolerating a regular diet with no chewing/swallowing difficulties, eating most of 3 meals per day. Scored 0 points on the malnutrition risk score, denies any recent significant weight gain or loss. Weight stable per past weights. She does c/o leg swelling, has hx of CHF. RD gave brief verbal low sodium diet education and encouraged her to restrict high salt items, she is already familiar with watching sodium intake, says her and her haven't cooked with it for years. Also discussed avoiding excessive fluid intake to prevent volume overload. She had no other dietary questions or concerns. SNU precert started. See recs below, patient is not at nutritional risk. Dx: No nutrition diagnosis Intervention: None Monitoring, Evaluation and Goals: PO intake > 50% of meals. Recommendations: 1. Continue current diet, monitor sodium/fluid intake to prevent volume overload. High [facility] Nutrition Therapy DATE: 08/03/16 Patient: CLAUDETTE SILVESTRE Physician: SJ Address: [address] Room/Bed: [address] [place] [address], Zip: [place] [address] Admit Date: 07/23/16 Date of : 38 Height: 5 6 Weight: 153 69.5 sodium foods verbally reviewed with the patient. 2. Daily weights given swelling and history of CHF. No nutrition risk Respectfully, Sarah Barrera RD, LD Food and Nutritional Services [facility] cc: client file
--- NOTE | ~2016-07-23 | US140 ---
[facility] A Service of [facility] RADIOLOGY TEXT RESULTS PATIENT: CLAUDETTE SILVESTRE LOCATION: [place] : 38 UNIT #: [id number] AGE: [address]: Curly Stafford MD SEX: F ORDER DR: [id number] [facility] [address] [place], [place] [address] [id number] I MR#: [id number] Acc #: [id number] NAME: CLAUDETTE SILVESTRE. : 1940 SEX: F STUDY DATE/TIME: 08/03/2016 14:26 UNIT: [facility] ROOM: [facility] STUDY DESCRIPTION: US UE Veins Unilat or Ltd Stdy Attending Physician: Curly Stafford M.D. Ordering Physician: Ry Villa M.D. Primary Care Physician: Melody Ham M.D. MEDICAL IMAGING REPORT This report is preliminary unless electronic signature is present EXAM Right upper extremity venous ultrasound INDICATIONS Right arm swelling for three days TECHNIQUE Venous ultrasound examination of the right lower extremity was performed using grayscale, spectral Doppler and color flow Doppler imaging. FINDINGS The examination is negative. There is no evidence of right lower extremity deep venous thrombus from the groin to the lower calf. Visualized greater saphenous vein is also patent. IMPRESSION Negative examination. No evidence of right lower extremity deep venous thrombosis. Dictated by... Keegan Martinez M.D. THIS IS AN ELECTRONICALLY VERIFIED REPORT Keegan Martinez M.D. at 08/03/2016 11:12 PM DFL/to TD: 08/03/2016 17:24 JOB #: [id number] MEDICAL IMAGING REPORT Page 1 of 1 COPY
--- NOTE | ~2016-07-23 | EKG ---
PATIENT: CLAUDETTE SILVESTRE UNIT #: [id number] Ventricular Rate: 88 BPM Atrial Rate: 394 BPM QRS Duration: 72 ms Q-T Interval: 368 ms QTC Calculation(Bezet): 445 ms Calculated R [place]: -50 degrees Calculated T [place]: 44 degrees Diagnosis Line: Atrial fibrillation Diagnosis Line: Left axis deviation Diagnosis Line: Low voltage QRS Diagnosis Line: Abnormal ECG Diagnosis Line: When compared with ECG of 12-MAY-2016 07:24, Diagnosis Line: No significant change was found Diagnosis Line: Confirmed by OLINDA CORTEZ MD ([id number]) on 07/24/2016 Diagnosis Line: 8:03:09 PM INTERPRETING MD: DIEGO HANDLEY
--- NOTE | ~2016-07-23 | CT16 ---
[facility] A Service of [facility] RADIOLOGY TEXT RESULTS PATIENT: CLAUDETTE SILVESTRE LOCATION: [facility] 241-01 : 38 UNIT #: [id number] AGE: [address]: Curly Stafford MD SEX: F ORDER DR: [id number] [facility] [address] [place], [place] [address] [id number] I MR#: [id number] Acc #: [id number] NAME: CLAUDETTE SILVESTRE. : 1940 SEX: F STUDY DATE/TIME: 07/23/2016 17:59 UNIT: [facility] ROOM: [facility] STUDY DESCRIPTION: CT Angio Chest for PE Attending Physician: Gilberto Stafford M.D. Ordering Physician: Suzan Crawley M.D. Primary Care Physician: Melody Ham M.D. MEDICAL IMAGING REPORT This report is preliminary unless electronic signature is present EXAM CT angiogram chest with IV contrast HISTORY Shortness of air for [address] exam was performed with one or more of the following radiation dose reduction techniques: automatic exposure control, adjustment of mA and/or kV according to patient size, and iterative reconstruction. IV contrast CT angiogram chest was performed with 3-D reconstructions. Exam is compared to CT 03/13/2016. FINDINGS No pulmonary embolus. Normal caliber thoracic aorta. Small bilateral pleural effusions. Moderate atelectasis in the bilateral lower lobes. Moderate patchy subsegmental infiltrate in the lateral left upper lobe and mild patchy subsegmental infiltrates in the anterior upper lobes bilaterally and in the posteroinferior right upper lobe, could be infectious or inflammatory. Moderate bilateral emphysema, greater in the upper lobes. No adenopathy. Stable borderline enlarged right paratracheal lymph node compared to 03/13/2016 CT. IMPRESSION 1. No pulmonary embolus. 2. Bilateral pleural effusions. 3. Mild atelectasis in the posterior lower lobes. 4. Moderate subsegmental infiltrate in the lateral left upper lobe and minimal subsegmental infiltrates in the anterior upper lobes bilaterally and in the posteroinferior right upper lobe. This could all be infectious or inflammatory. STS. [facility] A Service of [facility] & [facility] RADIOLOGY TEXT RESULTS PATIENT: CLAUDETTE SILVESTRE LOCATION: [facility] 241-01 : 38 UNIT #: [id number] AGE: [address]: Curly Stafford MD SEX: F ORDER DR: 5. Moderate to moderately advanced bilateral emphysema, greater in the upper lobes. Dictated by... Keegan Martinez M.D. THIS IS AN ELECTRONICALLY VERIFIED REPORT Keegan Martinez M.D. at 07/24/2016 11:29 PM JUAN/chasity TD: 07/24/2016 01:14 JOB #: [id number] MEDICAL IMAGING REPORT Page 1 of 1 COPY
--- NOTE | ~2016-07-23 | US85 ---
[facility] A Service of [facility] RADIOLOGY TEXT RESULTS PATIENT: CLAUDETTE SILVESTRE LOCATION: A : 38 UNIT #: [id number] AGE: [address]: Curly Stafford MD SEX: F ORDER DR: [id number] [facility] [address] [place], [place] [address] [id number] I MR#: [id number] Acc #: [id number] NAME: CLAUDETTE SILVESTRE. : 1940 SEX: F STUDY DATE/TIME: 08/02/2016 17:28 UNIT: [facility] ROOM: [facility] STUDY DESCRIPTION: LE JumpCam Unilat or Ltd Stdy Attending Physician: Curly Stafford M.D. Ordering Physician: Ry Villa M.D. Primary Care Physician: Melody Ham M.D. MEDICAL IMAGING REPORT This report is preliminary unless electronic signature is present EXAM Right lower extremity venous ultrasound HISTORY Leg pain and swelling for 3 days. TECHNIQUE Venous ultrasound examination of the right lower extremity was performed using grayscale, spectral Doppler and color flow Doppler imaging. FINDINGS The examination is negative. There is no evidence of right lower extremity deep venous thrombus from the groin to the lower calf. Visualized greater saphenous vein is also patent. IMPRESSION Negative examination. No evidence of right lower extremity deep venous thrombosis. Dictated by... Keegan Martinez M.D. THIS IS AN ELECTRONICALLY VERIFIED REPORT Keegan Martinez M.D. at 08/03/2016 11:10 PM DFL/kris TD: 08/02/2016 19:51 JOB #: [id number] MEDICAL IMAGING REPORT Page 1 of 1 COPY
--- NOTE | ~2016-07-23 | CR63 ---
[facility] A Service of [facility] RADIOLOGY TEXT RESULTS PATIENT: CLAUDETTE SILVESTRE LOCATION: [facility] 241-01 : 38 UNIT #: [id number] AGE: [address]: Curly Stafford MD SEX: F ORDER DR: [id number] [facility] [address] [place], [place] [address] [id number] I MR#: [id number] Acc #: [id number] NAME: CLAUDETTE SILVESTRE : 1940 SEX: F STUDY DATE/TIME: 07/29/2016 13:05 UNIT: C2A ROOM: 241 STUDY DESCRIPTION: CR Chest 2 View Attending Physician: Curly Stafford M.D. Ordering Physician: Ry Villa M.D. Primary Care Physician: Melody Ham M.D. MEDICAL IMAGING REPORT This report is preliminary unless electronic signature is present EXAM Chest 04/16 views 07/29/2016 1305 hours HISTORY 75-year-old woman with shortness of air, wheezing and nonproductive cough for a couple of weeks. History of COPD, hypertension and CHF. COMPARISON 07/27/2016 FINDINGS Upright PA and lateral views of the chest demonstrate stable cardiomegaly. Mediastinal and hilar contours are normal. There is stable benign calcified nodes. The lungs demonstrate improving bilateral interstitial change and clearing of right upper lobe density. There is some residual density in the left upper lobe. There is blunting of both costophrenic sulci likely stable bilateral effusions. IMPRESSION There is improving interstitial change in patchy airspace changes in the upper lobes as compared to 07/27/2016 with resolution on the right and minimal residual density in the left upper lung. There are persistent bilateral pleural effusions unchanged from 07/27/2016. Dictated by... Carmencita Garcia M.D. THIS IS AN ELECTRONICALLY VERIFIED REPORT Carmencita Garcia M.D. at 07/29/2016 2:29 PM CAMILA/mandy TD: 07/29/2016 13:51 JOB #: [id number] [facility] A Service of [facility] & [facility] RADIOLOGY TEXT RESULTS PATIENT: CLAUDETTE SILVESTRE LOCATION: [facility] 241-01 : 38 UNIT #: [id number] AGE: [address]: Curly Stafford MD SEX: F ORDER DR: MEDICAL IMAGING REPORT Page 1 of 1 COPY
--- NOTE | ~2016-07-23 | CO ---
Unit #: [id number] #: [id number] Patient: CLAUDETTE MEYER [id number] [address] [place], [place] [address] [id number] I MR#: [id number] NAME: CLAUDETTE MEYER. ROOM: 241 Age: 75 Sex: F Admission Date: 07/23/2016 : 1940 Attending Physician: Curly Stafford M.D. Primary Care Physician: Melody Ham M.D. Consultation Date: 07/27/2016 CONSULTATION REPORT REASON FOR CONSULTATION 1. Left arm hematoma versus abscess. 2. Microcytic hypochromic anemia. Thank you very much for asking us to see Ms. Meyer. HISTORY OF PRESENT ILLNESS She is a 75-year-old white female, who was admitted with pulmonary problems. She subsequently developed a left arm hematoma after IV access was changed. She was also found to have microcytic hypochromic anemia. She denies any GI bleeding. She denies any abdominal pain. She has regular bowel movements. Her weight has been stable and her appetite overall has been good. She presents at this time for further evaluation. PAST MEDICAL HISTORY COPD with home oxygen, history of recent pneumococcal pneumonia, atrial fibrillation, hypertension, hyperlipidemia, congestive heart failure, pulmonary hypertension. ALLERGIES Latex. SOCIAL HISTORY Long history of smoking in the past. No alcohol use. FAMILY HISTORY Noncontributory. MEDICATIONS Please see med rec sheet. REVIEW OF SYSTEMS Negative except for above. IMMUNIZATION STATUS Unknown. PHYSICAL EXAMINATION GENERAL: Well-developed, well-nourished white female, in no apparent distress. VITAL SIGNS: Afebrile. Vital signs stable. HEENT: Sclerae not icteric. Extraocular movements are intact. NECK: Supple. No thyromegaly or adenopathy. ABDOMEN: Soft, nontender. Examination of her left forearm reveals extensive bruising and a 3 x 4 cm Unit #: [id number] #: [id number] Patient: CLAUDETTE MEYER hematoma that has no evidence currently of abscess or infection. There was no evidence of overlying skin necrosis, and there was no extravasation of hematoma. DIAGNOSTIC STUDIES LABORATORY RESULTS: Reveal the patient to have a CMP that shows glucose of 150, BUN 30, creatinine 0.8. Liver function tests on 07/23/2016 were normal. White count is 15.1 with hemoglobin of 7.1, hematocrit 22.9, MCV of 79.6. Admission hemoglobin was 8.7. IMPRESSION A 75-year-old white female with a pulmonary issues and microcytic hypochromic anemia and a left forearm hematoma. In terms of the free forearm, we feel this should be followed expectantly, and if the patient develops extravasation, evidence of infection, or overlying skin necrosis, then she would need incision and drainage and debridement with either leaving the wound open or loosely closing it. In terms of microcytic hypochromic anemia, it would be best to perform upper and lower endoscopy when the patient is able to tolerate the prep and the procedure. At this point, we would continue Protonix b.i.d. empirically to treat a possible upper GI source. She has not had a colonoscopy for over 5 years. Her stool is Hemoccult negative and she may need evaluation by Hematology as well. Thank you very much for this consultation. We appreciate it. Dictated by... Rito Groves M.D. MONET/cathleen TD: 07/28/2016 04:51 JOB #: [id number] CC: Ry Villa M.D. [facility] CONSULTATION REPORT Page 1 of 1 X Rito Groves MD X CONSULTATION REPORT
--- NOTE | ~2016-07-23 | CR72 ---
[facility] A Service of [facility] & [facility] RADIOLOGY TEXT RESULTS PATIENT: CLAUDETTE SILVESTRE LOCATION: C2[place] 241- : 38 UNIT #: [id number] AGE: [address]: Curly Stafford MD SEX: F ORDER DR: [id number] [facility] [address] [place], [place] [address] [id number] I MR#: [id number] Acc #: [id number] NAME: CLAUDETTE SILVESTRE. : 1940 SEX: F STUDY DATE/TIME: 07/23/2016 16:24 UNIT: [facility] ROOM: [facility] STUDY DESCRIPTION: CR Chest Single View Portable Attending Physician: Gilberto Stafford M.D. Ordering Physician: uSzan Crawley M.D. Primary Care Physician: Melody Ham M.D. MEDICAL IMAGING REPORT This report is preliminary unless electronic signature is present EXAM AP radiograph of the chest 07/23/2016 HISTORY Short of air. Began 2 weeks ago. Worse today. FINDINGS AP radiograph of the chest is presented. Comparison 05/25/2016. No acute-appearing bony abnormality. Stable cardiac enlargement. The lungs are hyperinflated suggesting underlying emphysema. Increased vascular prominence compared to prior study consistent with underlying vascular congestion. Generalized increase in fine linear interstitial markings in the lungs more pronounced toward the periphery and at the lower lung zones. Small bilateral pleural effusions. Not significantly changed on right. Slightly increased on left. Basilar patchy and linear densities likely atelectatic in nature. Focal area of airspace disease in the left upper lung zone is entirely new. This might represent an area of airspace edema though this is an atypical distribution for airspace edema given the lack of significant 17:17 given the lack of extensive airspace involvement elsewhere. Concomitant left upper lobe pneumonia is a consideration. Short-interval followup to confirm resolution of findings is recommended. There is no suspicious nodule. Calcified azygos node unchanged. Records in DR PACS System indicate patient scheduled for CT chest. Please see that study for further evaluation. Dictated by... Boone Nevarez M.D. THIS IS AN ELECTRONICALLY VERIFIED REPORT Boone Nevarez M.D. at 07/24/2016 11:32 PM REGULO/donte [facility] A Service of [facility] & [facility] RADIOLOGY TEXT RESULTS PATIENT: CLAUDETTE SILVESTRE LOCATION: [place] [address] : 38 UNIT #: [id number] AGE: [address]: Curly Stafford MD SEX: F ORDER DR: TD: 07/23/2016 23:33 JOB #: [id number] MEDICAL IMAGING REPORT Page 1 of 1 COPY
--- NOTE | ~2016-07-23 | CO ---
Unit #: [id number] #: [id number] Patient: CLAUDETTE SILVESTRE [id number] [address] [address] [id number] I MR#: [id number] NAME: CLAUDETTE SILVESTRE. ROOM: 241 Age: 75 Sex: F Admission Date: 07/23/2016 : 1940 Attending Physician: Curly Stafford M.D. Primary Care Physician: Melody Ham M.D. CONSULTATION REPORT ADDENDUM We will also check arterial blood gases. We will see if she is hypercarbic. She may be a candidate for noninvasive ventilation if pCO2 is greater than 50. Dictated by... Bryce Cruz/cathleen TD: 07/24/2016 23:43 JOB #: [id number] CONSULTATION REPORT Page 1 of 1 X Curly Stafford MD X CONSULTATION REPORT
--- NOTE | ~2016-07-23 | CO ---
Unit #: [id number] #: [id number] Patient: CLAUDETTE MEYER [id number] [address] [place], [place] [address] [id number] I MR#: [id number] NAME: CLAUDETTE MEYER. ROOM: 241 Age: 75 Sex: F Admission Date: 07/23/2016 : 1940 Attending Physician: Curly Stafford M.D. Primary Care Physician: Melody Ham M.D. CONSULTATION REPORT HISTORY OF PRESENT ILLNESS Ms. Meyer is a 75-year-old white female, followed by Dr. Villa and Dr. Alvares. She was last admitted to the hospital in late 04/2016 to the hospital inpatient Physician Services, Dr. Villa had been consulted. We were called to admit the patient by the emergency room physicians and my partner admitted Ms. Meyer. She has been followed in our office for COPD and chronic respiratory failure. She also has a history of diastolic congestive heart failure. She was seen in our office on 06/24/2016 for exacerbation of COPD. She was treated with steroids. She was not provided antibiotics. A notation was made that she may be a candidate for noninvasive nocturnal ventilation, but that had not been setup. She presents now with a 2-week history of increasing shortness of breath, increased lower extremity edema. She has had no fever or chills. She has had some cough. She could hardly walk across the room. She continues to wear home oxygen. HOME MEDICATIONS Listed include Cartia, Xarelto, Lipitor, Advair, Tudorza, vitamin D, DuoNeb nebulizer treatments. Lasix which is generally 40 mg in the morning but 20 mg in the afternoon if she has edema. She had been taking the 20 mg in the afternoon. She is also on tramadol, Flonase, Lasix, Protonix, Ferotam, prednisone 10 mg daily, Centrum Silver arthritis pain relief. PAST MEDICAL HISTORY Include severe COPD with chronic respiratory failure, maintained on home oxygen 05/10. Has a history of recent pneumococcal pneumonia, history of atrial fibrillation, hypertension, hyperlipidemia, diastolic congestive heart failure, pulmonary hypertension with right ventricular systolic pressure estimated at 50. ALLERGIES Listed are latex. SOCIAL HISTORY She has a long history of smoking, denies smoking now. Denies alcohol or illicit drugs. FAMILY HISTORY No familial lung disease. REVIEW OF SYSTEMS CONSTITUTIONAL: No fever or chills. HEENT: Some rhinorrhea and nasal congestion. Unit #: [id number] #: [id number] Patient: CLAUDETTE MEYER PULMONARY: As noted. CARDIAC: No chest pain or palpitations. Does have a history of atrial fibrillation. GI: No nausea or vomiting. : No hematuria or dysuria. ENDOCRINE: No polyuria or polydipsia. HEMATOLOGIC: Does have easy bruising and bleeding. SKIN: No rash. NEURO: No unilateral weakness or numbness. No swollen joints. No history of seizures or strokes. She does snore. PHYSICAL EXAMINATION VITAL SIGNS: Blood pressure is 128/60, pulse is 100, respiratory rate 17, afebrile, O2 saturation 97% on 2 L. HEENT: Normocephalic and atraumatic. Pupils are equal, round, and reactive. Sclerae nonicteric. Nasal passages patent. Posterior pharynx crowded, Mallampati IV. Dentures in place. NECK: Supple. Trachea midline. Does have some swelling in the supraclavicular area, but no significant lymphadenopathy. She does have cushingoid facies. Does have somewhat diffuse bruising on the legs and hands. LUNGS: Reveal diminished breath sounds. Mild expiratory wheeze. CARDIAC: Irregular rate and rhythm. Could not appreciate murmur, rub, or gallop. ABDOMEN: Nontender. Bowel sounds are present. No hepatosplenomegaly. EXTREMITIES: Without clubbing, cyanosis, or edema. NEUROLOGIC: Awake and oriented x3. Cranial nerves grossly intact. Muscle strength symmetric bilaterally. She does have 2+ ankle and pretibial edema. SKIN: Warm and dry. Multiple bruising. Psychiatric: Affect calm. DIAGNOSTIC STUDIES LABORATORY RESULTS: Personally reviewed. BMP unremarkable. Hematocrit stable at about 27. No arterial blood gases done. CARDIOVASCULAR STUDIES: EKG; AFib, left axis deviation, low voltage, poor R-wave progression anteriorly. IMAGING STUDIES: CT scan of the chest shows patchy subsegmental infiltrates left upper lobe and right upper lobe somewhat multifocal. Bilateral pleural effusions. No evidence of pulmonary embolus. The left lower lobe infiltrate has resolved since previous chest x-ray in 02/2016. IMPRESSION 1. Possible healthcare-acquired pneumonia given recent hospitalization. 2. Some degree of congestive heart failure, chronic diastolic heart failure. 3. Chronic obstructive pulmonary disease exacerbation. 4. Acute on chronic respiratory failure. 5. Anemia, stable. 6. Other problems as mentioned above. PLAN We will treat with inhaled bronchodilators, IV Solu-Medrol for exacerbation of COPD. We will cover with broad-spectrum antibiotics to cover gram-negatives and MRSA given new development of infiltrates and recent hospitalization. We will check sputum culture. We will need Unit #: [id number] #: [id number] Patient: CLAUDETTE MEYER follow up chest x-ray or CT scan to ensure clearing. We will also check Legionella and strep antigens. If infiltrates do not clear, she may have nonbacterial cause of infiltrate i.e. fungus or etc given her immunosuppression from steroids. We will also provide diuresis. We will have consider having Cardiology to see if she does not improve. We will make further recommendations pending this. Thank you very much. Dictated by... Curly Stafford M.D. ANDREA/cathleen TD: 07/25/2016 00:38 JOB #: [id number] CONSULTATION REPORT Page 1 of 1 X Curly Stafford MD X CONSULTATION REPORT
--- NOTE | ~2016-07-23 | CR72 ---
[facility] A Service of [facility] & [facility] RADIOLOGY TEXT RESULTS PATIENT: CLAUDETTE SILVESTRE LOCATION: [facility] 241 : 38 UNIT #: [id number] AGE: [address]: Curly Stafford MD SEX: F ORDER DR: [id number] [facility] [address] [facility]. [place], [place] [address] [id number] I MR#: [id number] Acc #: [id number] NAME: CLAUDETTE SILVESTRE. : 1940 SEX: F STUDY DATE/TIME: 07/27/2016 6:22 UNIT: [facility] ROOM: [facility] [place] STUDY DESCRIPTION: CR Chest Single View Portable Attending Physician: Curly Stafford M.D. Ordering Physician: Navya Howard D.O. Primary Care Physician: Melody Ham M.D. MEDICAL IMAGING REPORT This report is preliminary unless electronic signature is present EXAM Portable chest, 07/27/2016. INDICATION Shortness of air and congestive heart failure for four days. COMPARISON 07/23/2016. FINDINGS This portable view of the chest shows tiny bilateral effusions with small patchy infiltrates in both upper lobes. The left infiltrate is slightly less dense than on the prior study. The right infiltrate I believe is new. Heart size is normal. Dictated by... Sheldon Scott M.D. THIS IS AN ELECTRONICALLY VERIFIED REPORT Sheldon Scott M.D. at 07/27/2016 2:19 PM FEL/gz TD: 07/27/2016 10:32 JOB #: [id number] MEDICAL IMAGING REPORT Page 1 of 1 COPY
--- NOTE | ~2016-07-23 | EKG ---
PATIENT: CLAUDETTE SILVESTRE UNIT #: [id number] Ventricular Rate: 88 BPM Atrial Rate: 94 BPM QRS Duration: 62 ms Q-T Interval: 350 ms QTC Calculation(Bezet): 423 ms Calculated R [place]: -32 degrees Calculated T [place]: 60 degrees Diagnosis Line: Atrial fibrillation Diagnosis Line: Left axis deviation Diagnosis Line: Low voltage QRS Diagnosis Line: Cannot rule out Anteroseptal infarct (cited on or Diagnosis Line: before 25-JUL-2016) Diagnosis Line: Abnormal ECG Diagnosis Line: Diagnosis Line: Confirmed by ANGELIKA SHUKLA MD ([id number]) on Diagnosis Line: 07/27/2016 8:36:07 AM INTERPRETING MD: VAZQUEZ HANDLEY
[~2016-07-23 15:49] MED LIST changes: +AMOX TR-K CLV 81 TA1 PO; +FLONASE 0.05% N16 G1; +K-LOR HOSPITAL20 ME1 PO; +LASIX PO; +TRAMADOL HCL50 M2 PO
[2016-07-23 16:43] LABS: BASOPHIL% 0.1 % (0-2.5); EOSINOPHIL% 0.2 % (0.0-7.0); HEMATOCRIT 27.5 % (35.0-45.0); HEMOGLOBIN 8.7 gm/dL (12.0-16.0); LYMPHOCYTE# 0.5 X10e3 (1.0-3.5); LYMPHOCYTE% 4.9 % (17.0-45.0); MEAN CELL VOLUME 80.7 FL (83-96); MEAN CORPUSCULAR HEMOGLOBIN 25.4 PG (28-34); MEAN CORPUSCULAR HGB CONC 31.5 g/dL (30-36); MEAN PLATELET VOLUME 6.2 FL (6.5-11.5); MONOCYTE# 0.7 X10e3 (0-1.0); MONOCYTE% 7.3 % (3.0-12.0); NEUTROPHIL# 8.9 X10e3 (1.5-7.1); NEUTROPHIL% 87.5 % (40-75); PLATELET COUNT 347 X10e3 (140-420); RED BLOOD COUNT 3.41 X10e (3.90-5.30); RED CELL DISTRIBUTION WIDTH 21.7 % (11.0-15.5); WHITE BLOOD COUNT 10.2 X10e3 (4.0-10.5)
[2016-07-23 16:47] LABS: DIFF IND NO
[2016-07-23 16:53] LABS: POC - CKMB 1.1 ng/mL (0.0-7.9); POC - TROPONIN <0.05 ng/mL (<=0.05)
[2016-07-23 16:58] LABS: INR 1.2; PARTIAL THROMBOPLASTIN TIME 28.9 SECONDS (23.5-31.3); PROTHROMBIN TIME (PATIENT) 12.7 SECONDS (9.6-11.5)
[2016-07-23 17:19] LABS: ALBUMIN SERUM 3.7 g/dL (3.5-5.0); BILIRUBIN, DIRECT 0.2 mg/dL (0.0-0.2); BILIRUBIN,TOTAL 1.2 mg/dL (0.2-2.0); BUN/CREATININE RATIO 25.71; CALCIUM SERUM 8.8 mg/dL (8.4-10.2); CREATININE SERUM 0.7 mg/dL (0.6-1.4); GLOM FILT RATE Estimated 83.6 mL/min (>60); POTASSIUM 3.4 mmol/L (3.5-5.1); PROTEIN TOTAL SERUM 6.3 g/dL (6.0-8.3)
[2016-07-23] MEDS ORDERED: LASIX20 MG PO (17:33)
[2016-07-23] MEDS ORDERED: ALBUTEROL MININEB PO (17:35)
[2016-07-23] MEDS ORDERED: PANTOPRAZOLE SO40 MG PO (17:35)
[2016-07-23] MEDS ORDERED: CENTRUM SILVER PO (17:36)
[2016-07-23] MEDS ORDERED: PREDNISONE10 MG PO (17:36)
[2016-07-23] MEDS ORDERED: FERRO-TIME325 MG PO (17:36)
[2016-07-23] MEDS ORDERED: ARTHRITIS PAIN650 M3 PO (17:37)
[2016-07-23 19:18] LABS: POC - CKMB <1.0 ng/mL (0.0-7.9); POC - TROPONIN <0.05 ng/mL (<=0.05)
[2016-07-24 11:11] LABS: ARTERIAL BLD GAS O2 SATURATION 95.7 % (90.0-100.0); ARTERIAL BLOOD GAS ALLEN TEST NORMAL; ARTERIAL BLOOD GAS ART SITE RIGHT RADIAL; ARTERIAL BLOOD GAS CARBOXY HB 1.6 %sat (0.0-9.0); ARTERIAL BLOOD GAS HCO3 31.1 mmol/L; ARTERIAL BLOOD GAS MET HB 0.7 %sat (0.0-2.0); ARTERIAL BLOOD GAS PCO2 44.6 mmHg (35.0-45.0); ARTERIAL BLOOD GAS PO2 86.4 mmHg (80.0-100); ARTERIAL BLOOD GAS pH 7.452 (7.350-7.450); ARTERIAL DRAW? YES
[2016-07-24 11:12] LABS: ARTERIAL BLOOD GAS DELIVERY NASAL CANNULA; ARTERIAL BLOOD GAS LITER FLOW 2.5
[2016-07-25 06:08] LABS: BUN/CREATININE RATIO 38.33; CALCIUM SERUM 9.1 mg/dL (8.4-10.2); CREATININE SERUM 0.6 mg/dL (0.6-1.4); GLOM FILT RATE Estimated 87.9 mL/min (>60); POTASSIUM 3.4 mmol/L (3.5-5.1)
[2016-07-25 16:03] LABS: HEMATOCRIT 25.1 % (35.0-45.0); HEMOGLOBIN 7.9 gm/dL (12.0-16.0); MEAN CELL VOLUME 79.3 FL (83-96); MEAN CORPUSCULAR HEMOGLOBIN 24.9 PG (28-34); MEAN CORPUSCULAR HGB CONC 31.4 g/dL (30-36); MEAN PLATELET VOLUME 6.3 FL (6.5-11.5); RED BLOOD COUNT 3.16 X10e (3.90-5.30); RED CELL DISTRIBUTION WIDTH 21.2 % (11.0-15.5); WHITE BLOOD COUNT 16.1 X10e3 (4.0-10.5)
[2016-07-26 08:07] LABS: INR 1.2; PROTHROMBIN TIME (PATIENT) 12.7 SECONDS (9.6-11.5)
[2016-07-26 08:30] LABS: BUN/CREATININE RATIO 38.75; CALCIUM SERUM 9.3 mg/dL (8.4-10.2); CREATININE SERUM 0.8 mg/dL (0.6-1.4); GLOM FILT RATE Estimated 71.2 mL/min (>60); POTASSIUM 3.8 mmol/L (3.5-5.1)
[2016-07-26 09:09] LABS: HEMATOCRIT 24.4 % (35.0-45.0); HEMOGLOBIN 7.5 gm/dL (12.0-16.0); MEAN CELL VOLUME 79.5 FL (83-96); MEAN CORPUSCULAR HEMOGLOBIN 24.4 PG (28-34); MEAN CORPUSCULAR HGB CONC 30.7 g/dL (30-36); MEAN PLATELET VOLUME 6.5 FL (6.5-11.5); RED BLOOD COUNT 3.06 X10e (3.90-5.30); RED CELL DISTRIBUTION WIDTH 20.6 % (11.0-15.5); WHITE BLOOD COUNT 16.8 X10e3 (4.0-10.5)
[2016-07-27 05:04] LABS: HEMATOCRIT 22.9 % (35.0-45.0); HEMOGLOBIN 7.1 gm/dL (12.0-16.0); MEAN CELL VOLUME 79.6 FL (83-96); MEAN CORPUSCULAR HEMOGLOBIN 24.7 PG (28-34); MEAN PLATELET VOLUME 6.2 FL (6.5-11.5); RED BLOOD COUNT 2.88 X10e (3.90-5.30); RED CELL DISTRIBUTION WIDTH 20.1 % (11.0-15.5); WHITE BLOOD COUNT 15.1 X10e3 (4.0-10.5)
[2016-07-27 05:23] LABS: INR 1.1; PARTIAL THROMBOPLASTIN TIME 24.9 SECONDS (23.5-31.3); PROTHROMBIN TIME (PATIENT) 11.6 SECONDS (9.6-11.5)
[2016-07-27 05:37] LABS: BUN/CREATININE RATIO 37.5; CALCIUM SERUM 9.4 mg/dL (8.4-10.2); CREATININE SERUM 0.8 mg/dL (0.6-1.4); GLOM FILT RATE Estimated 71.2 mL/min (>60); POTASSIUM 4.7 mmol/L (3.5-5.1)
[2016-07-28 07:11] LABS: HEMOGLOBIN 7.2 gm/dL (12.0-16.0); MEAN CELL VOLUME 79.5 FL (83-96); MEAN CORPUSCULAR HGB CONC 31.5 g/dL (30-36); MEAN PLATELET VOLUME 6.3 FL (6.5-11.5); RED BLOOD COUNT 2.89 X10e (3.90-5.30); RED CELL DISTRIBUTION WIDTH 20.3 % (11.0-15.5)
[2016-07-28 07:43] LABS: BUN/CREATININE RATIO 35.71; CALCIUM SERUM 9.1 mg/dL (8.4-10.2); CREATININE SERUM 0.7 mg/dL (0.6-1.4); GLOM FILT RATE Estimated 83.6 mL/min (>60); PHOSPHOROUS 3.2 mg/dL (2.5-4.6); POTASSIUM 4.6 mmol/L (3.5-5.1)
[2016-07-29 05:58] LABS: HEMATOCRIT 22.5 % (35.0-45.0); MEAN CELL VOLUME 79.3 FL (83-96); MEAN CORPUSCULAR HEMOGLOBIN 24.8 PG (28-34); MEAN CORPUSCULAR HGB CONC 31.2 g/dL (30-36); MEAN PLATELET VOLUME 6.3 FL (6.5-11.5); RED BLOOD COUNT 2.84 X10e (3.90-5.30); RED CELL DISTRIBUTION WIDTH 20.5 % (11.0-15.5); WHITE BLOOD COUNT 15.6 X10e3 (4.0-10.5)
[2016-07-29 13:09] LABS: IRON SERUM 14 ug/dL (28-170); LACTIC ACID DEHYDROGENASE 231 U/L (91-180); TOTAL IRON BINDING CAPACITY 345 ug/dL (269-535); TRANSFERRIN 247 mg/dL (192-382); TRANSFERRIN SATURATION 4 % (20-50)
[2016-07-29 13:22] LABS: FOLATE (FOLIC ACID) 12.6 ng/mL (>5.8)
[2016-07-30 06:25] LABS: HEMATOCRIT 23.9 % (35.0-45.0); HEMOGLOBIN 7.4 gm/dL (12.0-16.0); MEAN CELL VOLUME 79.5 FL (83-96); MEAN CORPUSCULAR HEMOGLOBIN 24.6 PG (28-34); MEAN CORPUSCULAR HGB CONC 30.9 g/dL (30-36); MEAN PLATELET VOLUME 6.3 FL (6.5-11.5); RED BLOOD COUNT 3.01 X10e (3.90-5.30); RED CELL DISTRIBUTION WIDTH 20.3 % (11.0-15.5)
[2016-07-31 06:11] LABS: HEMATOCRIT 22.9 % (35.0-45.0); HEMOGLOBIN 7.2 gm/dL (12.0-16.0); MEAN CELL VOLUME 78.5 FL (83-96); MEAN CORPUSCULAR HEMOGLOBIN 24.6 PG (28-34); MEAN CORPUSCULAR HGB CONC 31.4 g/dL (30-36); MEAN PLATELET VOLUME 6.3 FL (6.5-11.5); RED BLOOD COUNT 2.92 X10e (3.90-5.30); RED CELL DISTRIBUTION WIDTH 20.6 % (11.0-15.5); WHITE BLOOD COUNT 15.6 X10e3 (4.0-10.5)
[2016-07-31 07:16] LABS: CALCIUM SERUM 8.8 mg/dL (8.4-10.2); CREATININE SERUM 0.6 mg/dL (0.6-1.4); GLOM FILT RATE Estimated 87.9 mL/min (>60)
[2016-08-01 11:14] LABS: LEGIONELLA AG URINE NEG (NEG)
[2016-08-02 06:31] LABS: CALCIUM SERUM 9.1 mg/dL (8.4-10.2); CREATININE SERUM 0.6 mg/dL (0.6-1.4); GLOM FILT RATE Estimated 87.9 mL/min (>60); POTASSIUM 4.2 mmol/L (3.5-5.1)
[2016-08-03 06:43] LABS: HEMATOCRIT 24.9 % (35.0-45.0); HEMOGLOBIN 7.7 gm/dL (12.0-16.0); MEAN CORPUSCULAR HEMOGLOBIN 25.2 PG (28-34); MEAN CORPUSCULAR HGB CONC 31.1 g/dL (30-36); MEAN PLATELET VOLUME 6.7 FL (6.5-11.5); RED BLOOD COUNT 3.07 X10e (3.90-5.30); RED CELL DISTRIBUTION WIDTH 21.4 % (11.0-15.5)
[2016-08-03 07:21] LABS: BUN/CREATININE RATIO 28.57; CREATININE SERUM 0.7 mg/dL (0.6-1.4); GLOM FILT RATE Estimated 83.6 mL/min (>60); MAGNESIUM 1.8 mg/dL (1.6-3.0); PHOSPHOROUS 3.2 mg/dL (2.5-4.6); POTASSIUM 3.6 mmol/L (3.5-5.1)
[2016-08-04 10:39] LABS: BUN/CREATININE RATIO 26.25; CALCIUM SERUM 9.2 mg/dL (8.4-10.2); CREATININE SERUM 0.8 mg/dL (0.6-1.4); GLOM FILT RATE Estimated 71.2 mL/min (>60); POTASSIUM 3.4 mmol/L (3.5-5.1)
== END 2016-08-04 17:14 | DRG 189 ==
LOC: CED 15:49 → CEDOF 19:40 → C2A 19:40 → CEDOF 20:10 → CED 20:10 → C2A 20:10 → CEDOF 22:14 → C2A 08-04 17:14
PROVIDERS: Emergency Medicine; Internal Medicine; Internal Medicine Pulmonary Disease
PROC: 05H533Z Insertion of Infusion Device into Right Subclavian Vein, Percutaneous Approach (ICD-10-PCS; principal; 2016-07-25)
PROC: B546ZZA Ultrasonography of Right Subclavian Vein, Guidance (ICD-10-PCS; 2016-07-25)
DX: J96.20 Acute and chronic respiratory failure, unspecified whether with hypoxia or hypercapnia (principal); J18.9 Pneumonia, unspecified organism; E87.3 Alkalosis; I11.0 Hypertensive heart disease with heart failure; I50.32 Chronic diastolic (congestive) heart failure; I27.2 Other secondary pulmonary hypertension; J44.1 Chronic obstructive pulmonary disease with (acute) exacerbation; J44.0 Chronic obstructive pulmonary disease with (acute) lower respiratory infection; I48.2 Chronic atrial fibrillation; S40.022A Contusion of left upper arm, initial encounter; Z91.040 Latex allergy status; D50.0 Iron deficiency anemia secondary to blood loss (chronic); I10 Essential (primary) hypertension; E78.5 Hyperlipidemia, unspecified; E87.6 Hypokalemia
CPT/HCPCS: 36415; 36600; 71010; 71020; 71275; 80048; 80076; 80202; 82274; 82553; 82728; 82746; 82803; 83540; 83550; 83615; 83735; 83880; 84100; 84484; 85025; 85027; 85610; 85730; 87070; 87205; 87449; 87899; 93005; 93971; 94640; 94664; 94760; 96374; 97110; 97116; 97163; 97166; 97530; 97535; 99285; G8978-GP; G8979-GP; G8980-GP; G8987-GO; G8988-GO; J0692; J0696; J1940; J2543; J2916; J2920; J2930; J3260; J3370; Q9967

== ENCOUNTER 2016-11-03 07:51 | Inpatient (IN) | payer MEDICARE ==
[~2016-11-03] VITALS: Ht 162.6 cm; Wt 67.7 kg
--- NOTE | ~2016-11-03 | CR72 ---
[facility] A Service of [facility] & [facility] RADIOLOGY TEXT RESULTS PATIENT: CLAUDETTE SILVESTRE LOCATION: [place] [address] : 38 UNIT #: [id number] AGE: [address]: Ry Villa MD SEX: F ORDER DR: [id number] [facility] [address] [facility]. [place], [place] [address] [id number] I MR#: [id number] Acc #: [id number] NAME: CLAUDETTE SILVESTRE : 1940 SEX: F STUDY DATE/TIME: 11/03/2016 8:47 UNIT: [facility] ROOM: [id number] STUDY DESCRIPTION: CR Chest Single View Portable Attending Physician: Ry Villa M.D. Ordering Physician: Kevyn Cisneros M.D. Primary Care Physician: Melody Ham M.D. MEDICAL IMAGING REPORT This report is preliminary unless electronic signature is present EXAM Portable chest, 1 view, 11/03/2016. COMPARISON 07/29/2016 CLINICAL HISTORY Short of air today. FINDINGS Small left and moderate right pleural effusion, new since the prior study or clearly at least increased. New vascular congestion. Redemonstrated cardiomegaly. No consolidation or pneumothorax. IMPRESSION Findings suggest hypervolemia and/or congestive failure with vascular congestion, cardiomegaly, and zcfho-ykzxeee-clvb-left pleural effusions. Dictated by... Gabe Andersen M.D. THIS IS AN ELECTRONICALLY VERIFIED REPORT Gabe Andersen M.D. at 11/05/2016 5:01 PM GEORGE/melecio TD: 11/03/2016 13:17 JOB #: [id number] MEDICAL IMAGING REPORT Page 1 of 1 COPY
--- NOTE | ~2016-11-03 | CR72 ---
[facility] A Service of [facility] & [facility] RADIOLOGY TEXT RESULTS PATIENT: CLAUDETTE SILVESTRE LOCATION: [facility] [id number] : 38 UNIT #: [id number] AGE: [address]: Ry Villa MD SEX: F ORDER DR: [id number] [facility] [address] [facility]. [place], [place] [address] [id number] I MR#: [id number] Acc #: [id number] NAME: CLAUDETTE SILVESTRE : 1940 SEX: F STUDY DATE/TIME: 11/10/2016 16:10 UNIT: [facility] ROOM: [facility] STUDY DESCRIPTION: CR Chest Single View Portable Attending Physician: Ry Villa M.D. Ordering Physician: Ry Villa M.D. Primary Care Physician: Melody Ham M.D. MEDICAL IMAGING REPORT This report is preliminary unless electronic signature is present EXAM Portable chest INDICATIONS Shortness of breath for 1 week. COPD. COMPARISON 11/03/2016. FINDINGS Stable small bilateral pleural effusions. No new infiltrates. Heart size stable. IMPRESSION No significant change. Stable small bilateral pleural effusions. Dictated by... Yusuf Hernandez M.D. THIS IS AN ELECTRONICALLY VERIFIED REPORT Yusuf Hernandez M.D. at 11/11/2016 7:23 AM ARS/pcl TD: 11/10/2016 20:45 JOB #: [id number] MEDICAL IMAGING REPORT Page 1 of 1 COPY
--- NOTE | ~2016-11-03 | FU ---
[facility] Nutrition Therapy DATE: 11/20/16 Patient: CLAUDETTE SILVESTRE Physician: OSMAN Address: [address] Room/Bed: [address] [place] [address], Zip: [place] [address] Admit Date: 11/03/16 Date of : [birth year] Height: 5 4 Weight: 149 67.7 NUTRITION MONITORING/FOLLOW-UP: Reason: PT SEEN FOR FOLLOW-UP DX: SOA Anthropometrics: 5'4", WT: 149-160# (68-73 KG), BMI: 25.6-27.5 Labs: GLU: 155, BUN: 34, ALT: 43, NA+:134 Meds: PREDNISONE, FUROSEMIDE, REMERON, LIPITOR, COLACE, PEPCID, FERROUS GLUCONATE, THERAPEUTIC FORMULA I&O's: 690/3150 Skin: PREVIOUSLY NOTED Estimated Nutrition Needs: INCREASED PROTEIN NEEDS 2' CURRENT CLINICAL CONDITION AND SKIN BREAKDOWN Assessment: CHART REVIEWED AND EVENTS NOTED. PT SEEN FOR FOLLOW-UP. PT SITTING IN CHAIR AT TIME OF VISIT REPORTING GOOD PO INTAKE AND APPETITE, NOTING NO C/O N/V/D. PT REPORTS DRINKING ENSURE SHAKE DAILY, RD ENCOURAGED ENSURE COMPACT BID FOR ADDITIONAL PROTEIN AND KCAL BUT LESS FLUID INTAKE. PT REPORTED NO DIET QUESTIONS AT THIS TIME. RD TO CONTINUE TO FOLLOW. OF NOTE, AWAITING PLACEMENT FOR REHAB AT THIS TIME. Dx: INADEQUATE PROTEIN-ENERGY INTAKE R/T CURRENT CLINICAL CONDITION AEB P/U, SKIN BREAKDOWN.-ACTIVE 2. INCREASED NUTRIENT NEEDS R/T CURRENT CONDITION, SKIN BREAKDOWN AEB P/U, SKIN BREAKDOWN.-ACTIVE Intervention: 1. 2 GM NA + 1000 ML FLUID RESTRICTION 2. ENSURE SHAKES BID Monitoring, Evaluation and Goals: 1. INTAKE AND TOLERANCE OF PO INTAKE >50% OF MEALS AND SUPPLEMENTS-MET/ACTIVE 2. IMPROVEMENT IN LABS-IN PROGRESS 3. PROMOTE SKIN HEALING-IN PROGRESS, WOUND CARE FOLLOWING MONITOR: PER PROTOCOL, CRITERIA TO DETERMINE IF ABOVE GOALS ARE MET Recommendations: 1. ORDER PRUDENCE ENSURE COMPACT BID TO PROMOTE SKIN HEALING [facility] Nutrition Therapy DATE: 11/20/16 Patient: CLAUDETTE SILVESTRE Physician: OSMAN Address: [address] [facility] Room/Bed: [address] [place] [address], Zip: [place] [address] Admit Date: 11/03/16 Date of : [birth year] Height: 5 4 Weight: 149 67.7 2. CONSIDER ADDING MVI W/MINERAL DAILY TO PROMOTE SKIN HEALING 3. CONTINUE TO MONITOR LABS 4. CONTINUE TO ENCOURAGE PO INTAKE RD WILL F/U PER PROTOCOL PT IS MILDLY COMPROMISED Respectfully, KATTY JONES MS, RD, LD Food and Nutritional Services [facility] cc: client file
--- NOTE | ~2016-11-03 | A ---
[facility] Nutrition Therapy DATE: 11/09/16 Patient: CLAUDETTE SILVESTRE Physician: OSMAN Address: [address] Room/Bed: [address] [place] [address], Zip: [place] [address] Admit Date: 11/03/16 Date of : [birth year] Height: 5 4 Weight: 163 74.1 NUTRITIONAL ASSESSMENT: REASON: Consult (presumably for heart healthy diet education) PMH: CHF, COPD, PNA, HTN, HLD, Afib Diet: Heart healthy Anthropometrics: Ht: 64" wt: 73 kg BMI: 27.6 Diet: Heart healthy Assessment: Chart reviewed, events noted. RD received consult that read "MD", and in chart states "dietitian consult". RD spoke with RN, who reports that the pt's intake has been adequate (~75% meals). Pt has been educated on heart healthy diet with fluid restriction by [facility] RD in the past. RD spoke with the pt at bedside today. Pt reports that her daughter cooks for her, and that she does follow a low sodium diet at home and will sometimes "cheat". Pt reportedly never adds salt to her foods, explained low sodium diet strategies that she follows. RD offered additional suggestions and discussed 2 gram Na+ diet. Pt was thankful and requested Ensure, as she does not like the protein options on [facility] menu. RD will order. Recommendations: 1. Ensure compact (chocolate) BID for supplemental nutrition. 2. Pt to follow a low sodium/ heart healthy diet as instructed by RD. Pt is not at nutritional risk at this time. Consult RD for any further nutritional needs. Respectfully, KIM HOWE RD, LD Food and Nutritional Services [facility] cc: client file
--- NOTE | ~2016-11-03 | HP ---
Unit #: [id number] #: [id number] Patient: CLAUDETTE SILVESTRE [id number] [address] [place], [place] [address] [id number] I MR#: [id number] NAME: CLAUDETTE SILVESTRE ROOM: 550 Age: 76 Sex: F Admission Date: 11/03/2016 : 1940 Attending Physician: Ry Villa M.D. Primary Care Physician: Melody Ham M.D. HISTORY AND PHYSICAL CHIEF COMPLAINT Shortness of breath. HISTORY OF PRESENT ILLNESS A 76-year-old female has end-stage COPD, diastolic heart failure, chronic respiratory failure, had an episode of "bronchitis" last week. She was treated with antibiotics. She had multiple episodes of fairly severe shortness of breath but declined a hospitalization. Shortness of breath seemed to improve with nebulized bronchodilators. She awakened this morning short of breath, breathing treatments really did not help and she presented to the emergency room. According to the ER physician she was very tight, had very little air movement. There is a question and concern of possible mass ventilation. After nebulized bronchodilator she improved. She now is admitted to a telemetry floor, states that she feels better. She has had cough but minimal sputum production. She has not heard any wheezing but she says that "everyone tells me I do." She denies chest pain, hemoptysis and no definite fever. She does not know the antibiotics she was treated with last week. PAST MEDICAL HISTORY Past medical history is remarkable for: 1. End-stage emphysema. 2. Chronic respiratory failure. 3. Chronic atrial fibrillation. 4. Diastolic heart failure. 5. Pulmonary hypertension with RVSP of 50. 6. Anemia with heme-positive stools, anemia severe enough to hold her anticoagulation for atrial fibrillation. 7. Hypertension. 8. Hyperlipidemia. MEDICATIONS AT HOME She is on Breo one puff daily, Incruse one puff a day, prednisone 10 mg daily, apparently was being treated with Keflex last week, albuterol p.r.n., mirtazapine 7.5 mg daily, diltiazem 240 mg b.i.d., Lasix 20 mg daily, Zanaflex p.r.n., potassium 10 mEq daily, Lipitor 20 mg q.h.s., tramadol 50 mg t.i.d. p.r.n., aspirin 81 mg daily, vitamin D3 daily. She is on stool softeners and Mucinex p.r.n., multivitamin daily and iron b.i.d. ALLERGIES Latex. Unit #: [id number] #: [id number] Patient: CLAUDETTE SILVESTRE SOCIAL HISTORY She has quit smoking but basically smoked until very recently. FAMILY HISTORY No familial lung disease. REVIEW OF SYSTEMS She might have had a mild low grade temperature last week of 100.1 but no recent fevers. No chest pain, palpitations, abdominal pain, melena, hematochezia, hematemesis, hematuria or dysuria. She has had some lower extremity edema. No leg pain. No focal weakness, paresthesias. She has been scheduled for PFTs and a blood gas to evaluate outpatient AVAPS therapy. Further review of systems negative or as above. PHYSICAL EXAMINATION GENERAL APPEARANCE: Examination reveals a patient who appears chronically ill but in no acute distress. VITAL SIGNS: She is afebrile. Pulse is 109. Respiratory rate is 20. Blood pressure is 144/92. 5 foot 4, 159 pounds. HEENT: Pupils equal, round and reactive to light. Sclerae anicteric. Head atraumatic. NECK: Supple. No supraclavicular or cervical adenopathy appreciated. Mucous membranes moist. CHEST: Tight expiratory wheeze. Prolonged expiratory phase. No consolidation. CARDIAC: Examination reveals distant heart tones somewhat obscured by pulmonary adventitial sounds. Somewhat irregular. No definite murmur. ABDOMEN: Abdomen is soft, nontender. No hepatomegaly or rebound. EXTREMITIES: Reveal no clubbing, cyanosis or edema. Calves are nontender. SKIN: Bruising throughout. She does have some occasional skin tears. NEUROLOGICALLY: Grossly intact. No focal muscle or sensory deficits. DIAGNOSTIC STUDIES IMAGING: Chest x-ray consistent with congestive heart failure to my review with increased interstitium. Small bilateral pleural effusions. LABORATORY: Arterial blood gas pH of 7.37, pCO2 of 59.8, pO2 of 112 on 2.5 L. Her BUN is 13, creatinine is 0.7, BNP is 105, INR normal, cardiac enzymes normal, white blood cell count 10.6, hemoglobin 11.3 which is markedly improved. Blood cultures performed and are pending. Sputum in the past has grown aspergillus which was felt to be a colonizer. CARDIOVASCULAR: EKG is atrial fibrillation, some baseline artifact, nonspecific ST and T-wave changes. IMPRESSION 1. Shortness of breath, multifactorial. 2. End-stage chronic obstructive pulmonary disease with exacerbation. 3. Some degree of pulmonary edema and bilateral pleural effusions. 4. Gofxj-qh-zijzzcm respiratory failure, improving. 5. Chronic respiratory failure with 2.5 to 3 L of oxygen at home. 6. Anemia with heme-positive stools, never received workup as she was too weak, hemoglobin has improved. 7. Chronic atrial fibrillation. 8. Diastolic heart failure. 9. Pulmonary hypertension. 10. Hypertension, hyperlipidemia, etc. Unit #: [id number] #: [id number] Patient: CLAUDETTE SILVESTRE PLAN Maximize pulmonary status, oxygen to main adequate saturations, AVAPS trial, diuresis and will monitor closely her renal function and electrolytes. Add Pepcid and we will start prophylactic Lovenox and monitor hemoglobin and hematocrit. Certainly if her hemoglobin remains stable could consider anticoagulation for her atrial fibrillation. I will check an echocardiogram as one has not been performed recently and I see no echos in our records. I have discussed with Miss Silvestre and her family resuscitation status. She has a living will and she clearly states she does not want to be resuscitated in the event of a cardiopulmonary arrest. Dictated by Ry Villa M.D. SAURAV/parvin TD: 11/03/2016 17:36 JOB #: [id number] HISTORY AND PHYSICAL Page 1 of 1 X Ry Villa MD X HISTORY AND PHYSICAL
--- NOTE | ~2016-11-03 | EKG ---
PATIENT: CLAUDETTE SILVESTRE UNIT #: [id number] Ventricular Rate: 96 BPM Atrial Rate: 111 BPM QRS Duration: 66 ms Q-T Interval: 354 ms QTC Calculation(Bezet): 447 ms Calculated R [place]: -58 degrees Calculated T [place]: 49 degrees Diagnosis Line: Atrial fibrillation Diagnosis Line: Left axis deviation Diagnosis Line: Low voltage QRS Diagnosis Line: Cannot rule out Anteroseptal infarct (cited on or Diagnosis Line: before 25-JUL-2016) Diagnosis Line: Abnormal ECG Diagnosis Line: When compared with ECG of 25-JUL-2016 15:54, Diagnosis Line: No significant change was found Diagnosis Line: Confirmed by RADHA GALLOWAY MD ([id number]) on 11/04/2016 Diagnosis Line: 7:15:01 AM INTERPRETING MD: NILESH HANDLEY
--- NOTE | ~2016-11-03 | DS ---
Unit #: [id number] #: [id number] Patient: CLAUDETTE SILVESTRE [id number] [address] [place], [place] [address] [id number] I MR#: [id number] NAME: CLAUDETTE SILVESTRE ROOM: 550 Age: 76 Sex: F Admission Date: 11/03/2016 : 1940 Discharge Date: 11/20/2016 Attending Physician: Ry Villa M.D. Primary Care Physician: Melody Ham M.D. DISCHARGE SUMMARY DISCHARGE DIAGNOSES Please see chart for full details. 1. End-stage chronic obstructive pulmonary disease. 2. Acute on chronic respiratory failure. 3. Chronic respiratory failure, on oxygen during the day and AVAPS at night. 4. Diastolic heart failure. 5. Skin tears with no evidence of infection. 6. Stable anemia. 7. Permanent atrial fibrillation. 8. Pulmonary hypertension. 9. Hypertension. 10. Hyperlipidemia. MEDICATIONS At home, she is on Breo one puff a day, Incruse one puff a day, albuterol either by nebulizer or mini-neb q.i.d. p.r.n., Colace 100 mg b.i.d., Lopressor 12.5 mg b.i.d., diltiazem 180 mg b.i.d., Lasix 40 mg t.i.d., prednisone 20 mg a day to be tapered to 10 mg a day on her stable dose, Remeron 7.5 mg a day, Zanaflex 2 mg t.i.d. p.r.n. muscle spasms, Vitamin D daily as at home, Lipitor 20 mg at night, iron 324 mg b.i.d., Pepcid 20 mg b.i.d., multivitamin daily, aspirin 81 mg a day, Ultram 50 mg q.i.d. p.r.n. pain, spironolactone 25 mg b.i.d., potassium 20 mEq b.i.d. CODE STATUS DNR. FOLLOWUP She will follow up with Dr. Villa, nurse practitioner in [address] Villa in 6 to 8 weeks. She will follow up with Dr. Dixon in 2 to [address] Alvares in 3 to 4 weeks for general medical care. I have asked home health to evaluate and follow and I have asked for a BNP to monitor her electrolytes and renal function while on fairly high dose Lasix. Results will be sent to cardiology. DIET Healthy heart diet. ACTIVITY As above, oxygen during the day, AVAPS at night. DESCRIPTION OF HOSPITALIZATION Unit #: [id number] #: [id number] Patient: CLAUDETTE SILVESTRE Please see chart for full details. She was admitted to the hospital with shortness of breath, end-stage COPD with exacerbation. She was treated with steroids, nebulized bronchodilators, antibiotics, mask ventilation. She responded nicely to treatment. She then had worsening of her atrial fibrillation and tachycardia, and Cardiology was consulted. Please note, she has known atrial fibrillation, but was not on anticoagulation because of anemia. Past hospitalizations, she had severe anemia felt to be related to GI bleeding. She was evaluated by a LSA and felt to be too unstable for endoscopy at that time. She has been evaluated both inpatient and outpatient by Cardiology and they felt the risk of anticoagulation was too high. Therefore, she is off blood thinners for now. Echocardiogram was performed, which revealed an EF of 55% to 60%. RV pressures were estimated at 52. She had some mild wheezing which responded to increased steroids and diuresis. She actually tolerated her AVAPS very well and clinically improved and steroids were changed to oral and had been tapered relatively quickly without return of her bronchospasm. She had many skin tears and certainly at least in part related to her steroids. She generally is on 10 mg at baseline and she will be tapered to that fairly quickly. Later stages of her hospitalization were waiting for possible rehab. Physical therapy and Occupational therapy were working with the patient. Precertification took so long that she actually improved in both PT/OT signed off the case. Home health will be obtained for to help at home and also wound care. She did have leukocytosis felt secondary to steroids. She got fairly extensive evaluation with cultures of her urine, chest x-rays etc., and all showed no evidence of infection. Clinically, she had no evidence of infection and improved everyday. At time of discharge, she was probably a strong and lungs were as clear as I have ever seen them. As above, she is DNR status and she will remain that way. We will try to help her obtain an EMS DNR form. Overall, she was discharged in improved condition with followup as above. Dictated by... Bryce Schumacher/cathleen TD: 11/22/2016 18:51 JOB #: [id number] DISCHARGE SUMMARY Page 1 of 1 X Ry Villa MD X DISCHARGE SUMMARY
--- NOTE | ~2016-11-03 | EKG ---
PATIENT: CLAUDETTE SILVESTRE UNIT #: [id number] Ventricular Rate: 64 BPM Atrial Rate: 227 BPM QRS Duration: 72 ms Q-T Interval: 416 ms QTC Calculation(Bezet): 429 ms Calculated R [place]: -37 degrees Calculated T [place]: 26 degrees Diagnosis Line: Atrial fibrillation Diagnosis Line: Left axis deviation Diagnosis Line: Low voltage QRS Diagnosis Line: Cannot rule out Anteroseptal infarct (cited on or Diagnosis Line: before 25-JUL-2016) Diagnosis Line: Abnormal ECG Diagnosis Line: When compared with ECG of 03-NOV-2016 08:28, Diagnosis Line: Vent. rate has decreased BY 32 BPM Diagnosis Line: Confirmed by SANDY ROE MD ([id number]) on Diagnosis Line: 11/09/2016 4:44:14 PM INTERPRETING MD: CECILIA
--- NOTE | ~2016-11-03 | CR63 ---
[facility] A Service of [facility] RADIOLOGY TEXT RESULTS PATIENT: CLAUDETTE SILVESTRE LOCATION: [facility] 550-01 : 38 UNIT #: [id number] AGE: [address]: Ry Villa MD SEX: F ORDER DR: [id number] [facility] [address] [facility]. [place], [place] [address] [id number] I MR#: [id number] Acc #: [id number] NAME: CLAUDETTE SILVESTRE : 1940 SEX: F STUDY DATE/TIME: 11/16/2016 11:40 UNIT: [facility] ROOM: [facility] STUDY DESCRIPTION: CR Chest 2 View Attending Physician: Ry Villa M.D. Ordering Physician: Ry Villa M.D. Primary Care Physician: Melody Ham M.D. MEDICAL IMAGING REPORT This report is preliminary unless electronic signature is present EXAM Chest PA and lateral 3 views, 11/16/2016 HISTORY Shortness of breath, cough and chest congestion for 1 week, leukocytosis. Benign essential hypertension, atrial fibrillation and congestive heart failure, COPD. FINDINGS The heart is enlarged but stable compared with 11/10/2016. The lungs are hyperinflated with emphysematous and fibrotic changes characteristic of COPD. Probable small pleural effusions bilaterally. No pneumothorax. IMPRESSION Cardiomegaly, COPD and small bilateral pleural effusions. Dictated by... Willem Bernal M.D. THIS IS AN ELECTRONICALLY VERIFIED REPORT Willem Bernal M.D. at 11/17/2016 10:35 AM KEE/jose e TD: 11/16/2016 12:16 JOB #: [id number] MEDICAL IMAGING REPORT Page 1 of 1 COPY
--- NOTE | ~2016-11-03 | A ---
[facility] Nutrition Therapy DATE: 11/13/16 Patient: CLAUDETTE SILVESTRE Physician: OSMAN Address: [address] [place] [address] ROGELIO Room/Bed: [address] [place] [address], Zip: [place] [address] Admit Date: 11/03/16 Date of : 38 Height: 5 4 Weight: 158 72.11 NUTRITIONAL ASSESSMENT: REASON: LOS Amitting dx: 76 y/o female admitted with SOA PMH: COPD, CRF, HTN, HLD, Anemia, Diastolic Heart Failure, PNA, Chronic A-fib, smoker Anthropometrics: HT: 64" WT: 160# BMI: 27.5 Labs: Gluc: 171, Cl-:86, K+: 3.1, BUN: 40 Meds: Furosemide, Lopressor, Vit D, Colace, NaCl, Pepsid I/O & Bowel function: 11/12 BM x 1 Skin Integrity: P/U- Buttock/coccyx Bruise- BUE/BLE/generalized Skin tear- L upper arm Estimated Nutrition Needs: Increased protein needs 2' current clinical condition and skin breakdown Assessment: Chart reviewed, events noted. Pt was seen for LOS. RD was able to speak to patient at bedside. RD notes that pt has eaten 100% of her lunch tray. Pt states she is having a hard time with her fluid restriction. Pt has recently been given HHD education and states that she knows what to do. Pt reports no questions at this time. RD will follow-up per protocol. Dx: Inadequate protein-energy intake r/t current clinical condition AEB P/U, skin breakdown. 2. Increased nutrient needs r/t current condition, skin breakdown aeb P/U, skin breakdown. Intervention: 1. 2 gm NA + 1000 ml restriction diet 2. Chon Ensure Compact BID Monitoring, Evaluation and Goals: 1. Intake and tolerance of po intake >50% of meals and supplements 2. Improvement in labs; Gluc, K+, Cl-, BUN 3. Promote skin healing. Recommendations: [facility] Nutrition Therapy DATE: 11/13/16 Patient: CLAUDETTE SILVESTRE Physician: OSMAN Address: [address] [place] [address] ROGELIO Room/Bed: [address] [place] [address], Zip: [place] [address] Admit Date: 11/03/16 Date of : 38 Height: 5 4 Weight: 158 72.11 1. Order Chon Ensure compact BID to promote skin healing. 2. Continue to monitor labs. RD to follow Mild nutrition risk Respectfully, Lorenzo Mckinney RD, LD Martina Albert, Mechanical [employer] [facility] cc: client file
--- NOTE | ~2016-11-03 | US84 ---
[id number] [facility] [address] [facility]. [place], [place] [address] [id number] I MR#: [id number] Acc #: [id number] NAME: CLAUDETTE SILVESTRE : 1940 SEX: F STUDY DATE/TIME: 11/07/2016 10:19 UNIT: C5B ROOM: 550 STUDY DESCRIPTION: US LE Veins Complete Jono Stdy Attending Physician: Ry Villa M.D. Ordering Physician: Citlali Almonte A.P.R.N. Primary Care Physician: Melody Ham M.D. MEDICAL IMAGING REPORT This report is preliminary unless electronic signature is present EXAM Bilateral lower extremity duplex venous ultrasound. INDICATIONS There is bilateral lower extremity edema and swelling for 2-3 years. TECHNIQUE Maharaj-scale, color Doppler, and spectral Doppler waveform imaging of the deep venous structures of both lower extremities was performed using compression and augmentation. No comparison studies are available. FINDINGS All the evaluated deep venous structures are patent and compressible. There is no evidence for DVT. Noted within the right calf area in the region of the palpable abnormality is a possible small fluid collection versus a localized area of edema. There is also generalized edema in the left calf. IMPRESSION There is no evidence for DVT. Dictated by... Yusuf Hernandez M.D. THIS IS AN ELECTRONICALLY VERIFIED REPORT Yusuf Hernandez M.D. at 11/09/2016 7:36 AM Catia TD: 11/08/2016 12:16 JOB #: [id number] MEDICAL IMAGING REPORT Page 1 of 1 COPY
--- NOTE | ~2016-11-03 | CO ---
Unit #: [id number] #: [id number] Patient: CLAUDETTE SILVESTRE [id number] [address] [place], [place] [address] [id number] I MR#: [id number] NAME: CLAUDETTE SILVESTRE ROOM: 550 Age: 76 Sex: F Admission Date: 11/03/2016 : 1940 Attending Physician: Ry Villa M.D. Primary Care Physician: Melody Ham M.D. Consultation Date: 11/07/2016 CONSULTATION REPORT REASON FOR CONSULTATION Ventricular tachycardia. HISTORY OF PRESENT ILLNESS The patient is a 76-year-old female who follows with Dr. Cruz in the office. She reports that she last saw Dr. Cruz two to three months ago. In 07/2012 she had a cardiac catheterization which showed nonobstructive coronary artery disease, 20% stenosis in the LAD, 20% stenosis in the left circumflex and 20% stenosis in the RCA. The patient also had a two-dimensional echocardiogram on 11/04/2016 which showed an ejection fraction of 55%-60% mild to moderate TR with an RSVP of 52 mmHg. She does have a postoperative medical history of hypertension, hyperlipidemia, pulmonary hypertension, endstage chronic obstructive pulmonary disease/emphysema, pneumonia, chronic diastolic congestive heart failure and chronic hypoxic respiratory failure with O2 dependency with 2.5-3 liters of oxygen. She is a reformed smoker. The patient also has a history of permanent atrial fibrillation. However, her Xarelto was stopped in 07/2016 secondary to severe anemia. The patient initially presented to the hospital on 11/03/2016 with an episode of "bronchitis." She was treated with outpatient antibiotics, but continued to have shortness of breath and cough. She states that a home health nurse saw her and ultimately her daughter wound up calling EMS and she was transferred to [facility] for further workup. The patient had a chest x-ray that showed some small bilateral pleural effusions. Cardiology was consulted for nonsustained ventricular tachycardia. The patient denies any nausea, vomiting, fever, chills, chest pain or shortness of air at this time. She was told by the nurse that she did have a fast heartbeat, but she states that she has been asymptomatic again with no chest pain. EKG shows paroxysmal atrial fibrillation. Troponin was found to be less than 0.03. PAST MEDICAL HISTORY 1. Cardiac catheterization in 07/2012, nonobstructive coronary artery disease, 20% stenosis of the LAD, 20% stenosis of the left circumflex and 20% stenosis in the mid RCA. This catheterization was done after she had a positive Lexiscan Cardiolite stress test. 2. Echo from 11/04/2016 shows an ejection fraction of 55%-60%, mild to moderate TR, with an RSVP of 52 mmHg. 3. Permanent atrial fibrillation with Xarelto, stopped in 07/2016 secondary to anemia. Unit #: [id number] #: [id number] Patient: CLAUDETTE SILVESTRE 4. Hypertension. 5. Hyperlipidemia. 6. Pulmonary hypertension. 7. Endstage chronic obstructive pulmonary disease/emphysema. 8. Chronic hypoxic respiratory failure. 9. Chronic diastolic congestive heart failure. 10. History of pneumonia. 11. Reformed tobaccoism. PAST SURGICAL HISTORY Cardiac catheterization as detailed above. SOCIAL HISTORY The patient reports that she quit smoking in 02/2016. Prior to quitting she smoked about a pack of cigarettes a day for approximately 50 years. She lives with her daughter and denies any alcohol or illicit drug abuse. FAMILY HISTORY Positive for cancer. Her father had hypertension, but is unremarkable for any further heart disease that she is aware of. ALLERGIES Latex. HOME MEDICATIONS 1. Breo Ellipta. 2. Incruse. 3. Prednisone. 4. Recent Keflex. 5. Albuterol p.r.n. 6. Mirtazapine 7.5 mg p.o. daily. 7. Cardizem 240 mg p.o. b.i.d. 8. Lasix 20 mg p.o. daily. 9. Zanaflex p.r.n. 10. Potassium 10 mEq p.o. daily. 11. Lipitor 20 mg p.o. nightly. 12. Tramadol 50 mg p.o. t.i.d. p.r.n. 13. Aspirin 81 mg p.o. daily. 14. Vitamin D. 15. Stool softener. 16. Mucinex p.r.n. 17. Multivitamin 1 tablet p.o. daily. 18. Iron supplement 1 tablet p.o. b.i.d. REVIEW OF SYSTEMS A 10-point review of systems has been done and negative otherwise unless indicated in the history of present illness. PHYSICAL EXAMINATION GENERAL: The patient is awake, alert and in no acute distress. VITALS: Temperature 98.6, heart rate 91, respiratory rate 18, blood pressure 153/92, oxygenating 94% on oxygen. HEENT: Head is atraumatic, normocephalic. Pupils equal, round and reactive to light. Extraocular movements are intact. No jugular venous distension. NECK: Supple. Trachea is midline. HEART: Irregularly irregular. No murmurs, rubs or gallops appreciated. CHEST: Lungs are diminished bilaterally. Unit #: [id number] #: [id number] Patient: CLAUDETTE SILVESTRE ABDOMEN: Soft, nontender and nondistended. Bowel sounds are positive in all four quadrants. SKIN: Warm and dry. She has multiple bruising all over her body. EXTREMITIES: No clubbing or cyanosis. She has mild bilateral lower extremity edema. NEUROLOGIC: she is alert and oriented times four. She is pleasant and conversant. No focal deficits. DIAGNOSTIC STUDIES LABORATORY: White blood cell count 13.9, hemoglobin 10.8, hematocrit 32.4, platelets 303, glucose 183, BUN 25, creatinine 0.8, sodium 138, potassium 4.3, chloride 90, magnesium 2, troponin less than 0.03. TSH 1.65. ASSESSMENT 1. Ventricular tachycardia. 2. Permanent atrial fibrillation with CHADS VAD score of 5 and no anticoagulation secondary to anemia. 3. Acute chronic obstructive pulmonary disease exacerbation. 4. Wciwe-ci-onujyro hypoxic respiratory failure. 5. Pulmonary hypertension with an RSVP of 52 mmHg. 6. Chronic diastolic congestive heart failure. 7. Hypertension. 8. Hyperlipidemia. 9. Anemia with a history of Hemoccult positive stools. 10. Bilateral lower extremity swelling. 11. DNR. PLAN At this time will optimize electrolytes. Will continue the patient on Lopressor, Lipitor, Cardizem, IV Lasix and aspirin. The patient's potassium and magnesium are normal. Her TSH is also normal. The patient is currently refusing blood pressures more than once daily. Again, she is a DNR. The patient was complaining of swelling in her bilateral lower extremities. I did attempt to order bilateral Dopplers on her legs, but she is refusing these as well. Dictated by... Citlali Almonte A.P.R.N. for Philip Mendoza M.D. AM/gz TD: 11/07/2016 13:02 JOB #: [id number] CONSULTATION REPORT Page 1 of 1 X Citlali Almonte APRN X CONSULTATION REPORT
[~2016-11-03 07:51] MED LIST changes: +ALBUTEROL MININEB PO; +ARTHRITIS PAIN650 M3 PO; +CENTRUM SILVER PO; +FERRO-TIME325 MG PO; +LASIX20 MG PO; +PANTOPRAZOLE SO40 MG PO; +PREDNISONE10 MG PO
[2016-11-03 08:53] LABS: ARTERIAL BLD GAS O2 SATURATION 96.6 % (90.0-100.0); ARTERIAL BLOOD GAS CARBOXY HB 1.1 %sat (0.0-9.0); ARTERIAL BLOOD GAS HCO3 34.7 mmol/L; ARTERIAL BLOOD GAS MET HB 0.7 %sat (0.0-2.0); ARTERIAL BLOOD GAS PCO2 59.8 mmHg (35.0-45.0); ARTERIAL BLOOD GAS pH 7.372 (7.350-7.450)
[2016-11-03 08:54] LABS: ARTERIAL BLOOD GAS ART SITE LEFT BRACHIAL; ARTERIAL BLOOD GAS DELIVERY NASAL CANNULA; ARTERIAL BLOOD GAS LITER FLOW 2.5; ARTERIAL DRAW? YES
[2016-11-03 10:26] LABS: POC - TROPONIN <0.05 ng/mL (<=0.05)
[2016-11-03 10:28] LABS: BASOPHIL% 0.2 % (0-2.5); EOSINOPHIL% 0.4 % (0.0-7.0); HEMATOCRIT 35.4 % (35.0-45.0); HEMOGLOBIN 11.3 gm/dL (12.0-16.0); LYMPHOCYTE# 1.6 X10e3 (1.0-3.5); LYMPHOCYTE% 14.9 % (17.0-45.0); MEAN CELL VOLUME 84.7 FL (83-96); MEAN CORPUSCULAR HEMOGLOBIN 27.1 PG (28-34); MEAN PLATELET VOLUME 6.9 FL (6.5-11.5); MONOCYTE# 1.1 X10e3 (0-1.0); NEUTROPHIL# 7.9 X10e3 (1.5-7.1); NEUTROPHIL% 74.5 % (40-75); PLATELET COUNT 312 X10e3 (140-420); RED BLOOD COUNT 4.18 X10e (3.90-5.30); RED CELL DISTRIBUTION WIDTH 17.4 % (11.0-15.5); WHITE BLOOD COUNT 10.6 X10e3 (4.0-10.5)
[2016-11-03 10:34] LABS: DIFF IND NO
[2016-11-03 10:39] LABS: INR 1.1; PROTHROMBIN TIME (PATIENT) 11.7 SECONDS (10.0-11.7)
[2016-11-03] MEDS ORDERED: PATIENT'S PHARMACY (11:01)
[2016-11-03] MEDS ORDERED: BREO ELLIPTA 21 EACH INH (11:01)
[2016-11-03] MEDS ORDERED: PREDNISONE PO (11:01)
[2016-11-03] MEDS ORDERED: MIRTAZAPINE7.5 MG PO (11:02)
[2016-11-03] MEDS ORDERED: INCRUSE ELLI62.5 MCG INH (11:02)
[2016-11-03] MEDS ORDERED: KEFLEX500 MG PO (11:02)
[2016-11-03] MEDS ORDERED: ALBUTEROL 0.5ML NEB (11:02)
[2016-11-03] MEDS ORDERED: ALBUTEROL17 GM INH (11:02)
[2016-11-03] MEDS ORDERED: DILTIAZEM 24HR240 M2 PO (11:02)
[2016-11-03] MEDS ORDERED: LASIX20 MG PO (11:03)
[2016-11-03] MEDS ORDERED: ZANAFLEX PO (11:03)
[2016-11-03] MEDS ORDERED: KCL PO (11:04)
[2016-11-03 11:09] LABS: ALBUMIN SERUM 3.9 g/dL (3.5-5.0); BILIRUBIN, DIRECT 0.2 mg/dL (0.0-0.2); BILIRUBIN,INDIRECT 0.8 mg/dL (0.0-0.9); BUN/CREATININE RATIO 18.57; CALCIUM SERUM 9.1 mg/dL (8.4-10.2); CREATININE SERUM 0.7 mg/dL (0.6-1.4); POTASSIUM 3.9 mmol/L (3.5-5.1); PROTEIN TOTAL SERUM 6.4 g/dL (6.0-8.3)
[2016-11-03] MEDS ORDERED: LIPITOR20 MG PO (13:44)
[2016-11-03] MEDS ORDERED: TRAMADOL HCL50 M1 PO (13:47)
[2016-11-03] MEDS ORDERED: TIZANIDINE HCL2 M1 PO (13:51)
[2016-11-03] MEDS ORDERED: BREO ELLIPTA 21 EACH (13:53)
[2016-11-03] MEDS ORDERED: PROAIR RESPICL90 MCG (13:56)
[2016-11-03] MEDS ORDERED: ASPIRIN81 M2 PO (13:57)
[2016-11-03] MEDS ORDERED: VITAMIN D32000 UNIT PO (13:58)
[2016-11-03] MEDS ORDERED: DOK100 MG PO (13:59)
[2016-11-03] MEDS ORDERED: MUCINEX DM ER1 EACH PO (14:00)
[2016-11-03] MEDS ORDERED: MULTIVITAMINS1 EAC3 PO (14:02)
[2016-11-03] MEDS ORDERED: FERROUS GLUCON324 M1 PO (14:02)
[2016-11-04 06:29] LABS: HEMATOCRIT 32.9 % (35.0-45.0); HEMOGLOBIN 10.8 gm/dL (12.0-16.0); MEAN CELL VOLUME 82.9 FL (83-96); MEAN CORPUSCULAR HEMOGLOBIN 27.1 PG (28-34); MEAN CORPUSCULAR HGB CONC 32.6 g/dL (30-36); MEAN PLATELET VOLUME 6.8 FL (6.5-11.5); RED BLOOD COUNT 3.97 X10e (3.90-5.30); RED CELL DISTRIBUTION WIDTH 17.3 % (11.0-15.5); WHITE BLOOD COUNT 7.5 X10e3 (4.0-10.5)
[2016-11-04 07:05] LABS: BUN/CREATININE RATIO 21.25; CALCIUM SERUM 9.4 mg/dL (8.4-10.2); CREATININE SERUM 0.8 mg/dL (0.6-1.4); GLOM FILT RATE Estimated 70.7 mL/min (>60)
[2016-11-05 07:37] LABS: HEMATOCRIT 32.9 % (35.0-45.0); MEAN CELL VOLUME 83.1 FL (83-96); MEAN CORPUSCULAR HEMOGLOBIN 27.8 PG (28-34); MEAN CORPUSCULAR HGB CONC 33.4 g/dL (30-36); MEAN PLATELET VOLUME 6.7 FL (6.5-11.5); RED BLOOD COUNT 3.96 X10e (3.90-5.30); RED CELL DISTRIBUTION WIDTH 17.3 % (11.0-15.5); WHITE BLOOD COUNT 15.4 X10e3 (4.0-10.5)
[2016-11-05 08:02] LABS: BUN/CREATININE RATIO 23.33; CALCIUM SERUM 9.5 mg/dL (8.4-10.2); CREATININE SERUM 0.9 mg/dL (0.6-1.4); GLOM FILT RATE Estimated 61.3 mL/min (>60); POTASSIUM 3.6 mmol/L (3.5-5.1)
[2016-11-07 08:28] LABS: HEMATOCRIT 32.4 % (35.0-45.0); HEMOGLOBIN 10.8 gm/dL (12.0-16.0); MEAN CELL VOLUME 82.8 FL (83-96); MEAN CORPUSCULAR HEMOGLOBIN 27.6 PG (28-34); MEAN CORPUSCULAR HGB CONC 33.3 g/dL (30-36); MEAN PLATELET VOLUME 6.6 FL (6.5-11.5); RED BLOOD COUNT 3.91 X10e (3.90-5.30); WHITE BLOOD COUNT 13.9 X10e3 (4.0-10.5)
[2016-11-07 08:53] LABS: CK TOTAL 17 IU/L (26-140)
[2016-11-07 08:58] LABS: BUN/CREATININE RATIO 31.25; CALCIUM SERUM 9.4 mg/dL (8.4-10.2); CREATININE SERUM 0.8 mg/dL (0.6-1.4); GLOM FILT RATE Estimated 70.7 mL/min (>60); POTASSIUM 4.3 mmol/L (3.5-5.1)
[2016-11-08 07:29] LABS: BUN/CREATININE RATIO 41.42; CALCIUM SERUM 9.3 mg/dL (8.4-10.2); CREATININE SERUM 0.7 mg/dL (0.6-1.4); MAGNESIUM 2.2 mg/dL (1.6-3.0); POTASSIUM 4.7 mmol/L (3.5-5.1)
[2016-11-11 12:20] LABS: BUN/CREATININE RATIO 48.57; CALCIUM SERUM 8.9 mg/dL (8.4-10.2); CREATININE SERUM 0.7 mg/dL (0.6-1.4); MAGNESIUM 2.1 mg/dL (1.6-3.0); POTASSIUM 4.4 mmol/L (3.5-5.1)
[2016-11-12 06:27] LABS: PARTIAL THROMBOPLASTIN TIME 22.5 SECONDS (23.5-31.3); PROTHROMBIN TIME (PATIENT) 11.1 SECONDS (10.0-11.7)
[2016-11-12 06:28] LABS: HEMATOCRIT 34.4 % (35.0-45.0); HEMOGLOBIN 11.4 gm/dL (12.0-16.0); MEAN CELL VOLUME 83.5 FL (83-96); MEAN CORPUSCULAR HEMOGLOBIN 27.6 PG (28-34); RED BLOOD COUNT 4.12 X10e (3.90-5.30); RED CELL DISTRIBUTION WIDTH 16.7 % (11.0-15.5); WHITE BLOOD COUNT 21.8 X10e3 (4.0-10.5)
[2016-11-12 08:49] LABS: BUN/CREATININE RATIO 42.5; CALCIUM SERUM 8.9 mg/dL (8.4-10.2); CREATININE SERUM 0.8 mg/dL (0.6-1.4); GLOM FILT RATE Estimated 70.7 mL/min (>60); MAGNESIUM 2.1 mg/dL (1.6-3.0); POTASSIUM 3.8 mmol/L (3.5-5.1)
[2016-11-13 07:21] LABS: HEMATOCRIT 33.8 % (35.0-45.0); HEMOGLOBIN 10.9 gm/dL (12.0-16.0); MEAN CELL VOLUME 83.8 FL (83-96); MEAN CORPUSCULAR HEMOGLOBIN 26.9 PG (28-34); MEAN CORPUSCULAR HGB CONC 32.1 g/dL (30-36); MEAN PLATELET VOLUME 7.9 FL (6.5-11.5); RED BLOOD COUNT 4.03 X10e (3.90-5.30); RED CELL DISTRIBUTION WIDTH 16.9 % (11.0-15.5); WHITE BLOOD COUNT 24.7 X10e3 (4.0-10.5)
[2016-11-13 10:31] LABS: BUN/CREATININE RATIO 57.14; CALCIUM SERUM 8.9 mg/dL (8.4-10.2); CREATININE SERUM 0.7 mg/dL (0.6-1.4); MAGNESIUM 2.2 mg/dL (1.6-3.0); POTASSIUM 3.1 mmol/L (3.5-5.1)
[2016-11-14 07:39] LABS: BUN/CREATININE RATIO 73.33; CALCIUM SERUM 8.9 mg/dL (8.4-10.2); CREATININE SERUM 0.6 mg/dL (0.6-1.4); GLOM FILT RATE Estimated 87.3 mL/min (>60); POTASSIUM 3.1 mmol/L (3.5-5.1)
[2016-11-15 04:29] LABS: URINE APPEARANCE CLEAR; URINE BILIRUBIN NEG (NEG); URINE BLOOD NEG (NEG); URINE COLOR YELLOW; URINE GLUCOSE NEG (NEG); URINE KETONE NEG (NEG); URINE LEUKOCYTE ESTERASE NEG (NEG); URINE NITRATE NEG (NEG); URINE PH 8.5 (5-8); URINE PROTEIN NEG (NEG); URINE SPECIFIC GRAVITY 1.013 (1.003-1.035)
[2016-11-15 04:34] LABS: CULTURE INDICATED? NO
[2016-11-15 06:30] LABS: CREATININE SERUM 0.7 mg/dL (0.6-1.4); POTASSIUM 3.9 mmol/L (3.5-5.1)
[2016-11-16 06:48] LABS: HEMATOCRIT 34.1 % (35.0-45.0); MEAN CELL VOLUME 83.4 FL (83-96); MEAN CORPUSCULAR HEMOGLOBIN 26.9 PG (28-34); MEAN CORPUSCULAR HGB CONC 32.2 g/dL (30-36); MEAN PLATELET VOLUME 7.2 FL (6.5-11.5); RED BLOOD COUNT 4.09 X10e (3.90-5.30); RED CELL DISTRIBUTION WIDTH 16.5 % (11.0-15.5); WHITE BLOOD COUNT 30.2 X10e3 (4.0-10.5)
[2016-11-16 07:00] LABS: BUN/CREATININE RATIO 48.75; CALCIUM SERUM 9.2 mg/dL (8.4-10.2); CREATININE SERUM 0.8 mg/dL (0.6-1.4); GLOM FILT RATE Estimated 70.7 mL/min (>60); MAGNESIUM 2.2 mg/dL (1.6-3.0); PHOSPHOROUS 3.6 mg/dL (2.5-4.6); POTASSIUM 4.8 mmol/L (3.5-5.1)
[2016-11-17 05:14] LABS: HEMATOCRIT 31.5 % (35.0-45.0); HEMOGLOBIN 10.5 gm/dL (12.0-16.0); MEAN CELL VOLUME 83.4 FL (83-96); MEAN CORPUSCULAR HEMOGLOBIN 27.8 PG (28-34); MEAN CORPUSCULAR HGB CONC 33.3 g/dL (30-36); MEAN PLATELET VOLUME 7.1 FL (6.5-11.5); RED BLOOD COUNT 3.78 X10e (3.90-5.30); RED CELL DISTRIBUTION WIDTH 16.5 % (11.0-15.5); WHITE BLOOD COUNT 24.1 X10e3 (4.0-10.5)
[2016-11-17 05:40] LABS: BUN/CREATININE RATIO 48.75; CALCIUM SERUM 8.8 mg/dL (8.4-10.2); CREATININE SERUM 0.8 mg/dL (0.6-1.4); GLOM FILT RATE Estimated 70.7 mL/min (>60); MAGNESIUM 2.2 mg/dL (1.6-3.0); POTASSIUM 4.2 mmol/L (3.5-5.1)
[2016-11-18 05:09] LABS: HEMOGLOBIN 10.4 gm/dL (12.0-16.0); MEAN CELL VOLUME 83.3 FL (83-96); MEAN CORPUSCULAR HEMOGLOBIN 27.2 PG (28-34); MEAN CORPUSCULAR HGB CONC 32.6 g/dL (30-36); MEAN PLATELET VOLUME 7.1 FL (6.5-11.5); RED BLOOD COUNT 3.84 X10e (3.90-5.30); RED CELL DISTRIBUTION WIDTH 17.3 % (11.0-15.5); WHITE BLOOD COUNT 22.8 X10e3 (4.0-10.5)
[2016-11-18 05:52] LABS: CALCIUM SERUM 8.4 mg/dL (8.4-10.2); CREATININE SERUM 0.7 mg/dL (0.6-1.4); POTASSIUM 4.7 mmol/L (3.5-5.1)
[2016-11-19 06:52] LABS: ALBUMIN SERUM 3.5 g/dL (3.5-5.0); BILIRUBIN,TOTAL 1.3 mg/dL (0.2-2.0); BUN/CREATININE RATIO 42.5; CALCIUM SERUM 8.9 mg/dL (8.4-10.2); CREATININE SERUM 0.8 mg/dL (0.6-1.4); GLOM FILT RATE Estimated 70.7 mL/min (>60); POTASSIUM 4.8 mmol/L (3.5-5.1); PROTEIN TOTAL SERUM 5.6 g/dL (6.0-8.3)
[2016-11-20] MEDS ORDERED: FERROUS GLUCON324 MG PO (17:34)
[2016-11-20] MEDS ORDERED: PEPCID AC20 M2 PO (17:36)
[2016-11-20] MEDS ORDERED: LOPRESSOR PO (17:37)
[2016-11-20] MEDS ORDERED: LASIX PO (17:37)
[2016-11-20] MEDS ORDERED: ALDACTONE PO (17:38)
== END 2016-11-20 21:00 | disposition home or self-care (01) | DRG 291 ==
LOC: CED 07:51 → CEDOF 11:10 → C5B 11:10 → CEDOF 11:47 → CED 11:47 → C5B 13:18 → CEDOF 13:18 → C5B 13:18
PROVIDERS: Emergency Medicine; Internal Medicine; Internal Medicine Cardiovascular Disease; Nurse Practitioner
PROC: 05HF33Z Insertion of Infusion Device into Left Cephalic Vein, Percutaneous Approach (ICD-10-PCS; principal; 2016-11-04)
PROC: B24BZZZ Ultrasonography of Heart with Aorta (ICD-10-PCS; 2016-11-04)
DX: I11.0 Hypertensive heart disease with heart failure (principal); J96.21 Acute and chronic respiratory failure with hypoxia; I27.2 Other secondary pulmonary hypertension; J44.1 Chronic obstructive pulmonary disease with (acute) exacerbation; K92.2 Gastrointestinal hemorrhage, unspecified; Z99.81 Dependence on supplemental oxygen; I47.1 Supraventricular tachycardia; I48.2 Chronic atrial fibrillation; D64.9 Anemia, unspecified; I50.33 Acute on chronic diastolic (congestive) heart failure; Z87.891 Personal history of nicotine dependence; E78.5 Hyperlipidemia, unspecified; Z66 Do not resuscitate; Z87.01 Personal history of pneumonia (recurrent); Z91.040 Latex allergy status
CPT/HCPCS: 36415; 36600; 71010; 71020; 80048; 80053; 80076; 81003; 82040; 82308; 82550; 82553; 82803; 83605; 83735; 83880; 84100; 84443; 84484; 85025; 85027; 85610; 85730; 87040; 93005; 93306; 93970; 94640; 94660; 94664; 94760; 97110; 97116; 97162; 97166; 97168; 97530; 97535; 99291; 99292; C1887; G8978-GP; G8979-GP; G8987-GO; G8988-GO; G8989-GO; J0456; J1650; J1940; J2920; J2930